=== PATIENT | male | born 1985 | race Caucasian/White ===

== ENCOUNTER 2019-04-18 21:54 | Emergency (ER) | payer BC ==
[2019-04-18] MEDS ORDERED: FLU Vacc QS2019-20(6MOS+)/PF 60 MCG/0.5 ML SYRINGE IM ONE (22:45)
--- NOTE | 2019-04-18 22:45 | EDM.PDOCBH ---
ED HPI GENERAL MEDICAL PROBLEM - General Chief Complaint: Behavioral/Psych Stated Complaint: JESSICA NICHOLAS Time Seen by Provider: 04/18/19 22:14 Source of Information: Reports: Patient, Family (Mother) History Limitations: Reports: No Limitations - History of Present Illness INITIAL COMMENTS - FREE TEXT/NARRATIVE: Mr. Tse is a very pleasant 33-year-old man who is accompanied to the ED by his mother, who lives across the street from the patient. The patient has a history of depression and ADHD since he was in high school, however, he has not been on any antidepressant for at least 4 years, and the patient is unable to say how long it has been since his ADHD was treated. He has no other medical or psychiatric diagnoses. He states that he started having auditory hallucinations that told him "salvation is all that matters" and that he was going to be 1 of 12 apostles, about one week ago. He states that the voice was teaching him "new prayers". He states that he also has "visions" in his head. The patient, however , has come to believe that he is inhabited by a demon, and that all of the things that he has been told are a lie. Nevertheless, he feels that the demon is inhabiting more and more of his body, therefore he has been feeling compelled to harm himself by grabbing a knife and cutting himself, today. He states that prior to 1 week ago, he never heard voices or saw visions in his head. He has not done anything to harm himself. 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 He denies using any recreational drugs, and he states that he drinks alcohol only rarely. The patient denies recent illness, such as fever, chills, cough, dyspnea, chest pain, palpitations, nausea, vomiting, constipation, diarrhea, abdominal pain, urinary symptoms, recent weight gain or weight loss, recent bloody bowel movements or black bowel movements, recent joint aches, headaches, or rashes. The patient does not have a PCP. He does not have a Psychiatrist. He has not received an influenza vaccine this season, but is willing to receive one here today. Throat Pain Score (Numeric/FACES): 2 - Related Data Allergies Allergy/AdvReac Type Severity Reaction Status Date / Time No Known Allergies Allergy Verified 04/18/19 22:11 Home Meds: Home Meds . [No Known Home Meds] 04/18/19 [History] Past Medical History Psychiatric History: Reports: ADHD (untreated), Depression (untreated) - Past Surgical History HEENT Surgical History: Reports: Oral Surgery (wisdom teeth extraction) Musculoskeletal Surgical History: Reports: Other (See Below) (Left Brostrm procedure (repair of anterior talofibular ligament) x 2) Social & Family History - Tobacco Use Smoking Status *Q: Current Every Day Smoker Years of Tobacco use: 15 Packs/Tins Daily: 1 Packs/Tins Daily Comment: Down from 2 ppd - Caffeine Use Caffeine Use: Reports: Coffee, Energy Drinks - Alcohol Use Alcohol Use History: Yes Alcohol Use Frequency: Rarely - Recreational Drug Use Recreational Drug Use: Yes Drug Use in Last 12 Months: No Recreational Drug Type: Reports: Marijuana/Hashish (last smoked 2008) - Living Situation & Occupation Living situation: Reports: Single, Alone 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 ED EXAM, BEHAVIORAL HEALTH - Physical Exam Exam: See Below Exam Limited By: No Limitations General Appearance: Alert, WD/WN, No Apparent Distress Eye Exam: Bilateral Eye: EOMI, Normal Inspection Ears: Normal External Exam, Hearing Grossly Normal Nose: Normal Inspection Throat/Mouth: Normal Inspection, Normal Lips, Normal Voice, No Airway Compromise Head: Atraumatic, Normocephalic Neck: Normal Inspection, Full Range of Motion Respiratory/Chest: No Respiratory Distress, Lungs Clear, Normal Breath Sounds, No Accessory Muscle Use Cardiovascular: Normal Peripheral Pulses, No Edema, No Gallop, No JVD, No Murmur , No Rub, Tachycardia (regular) GI/Abdominal: Normal Bowel Sounds, Soft, Non-Tender, No Organomegaly, No Distention, No Abnormal Bruit, No Mass (Male) Exam: Deferred Rectal (Males) Exam: Deferred Back Exam: Normal Inspection, Full Range of Motion, NT Extremities: Normal Inspection, Normal Range of Motion, No Pedal Edema, Normal Capillary Refill Neurological: Alert, No Motor/Sensory Deficits, Oriented x 3 Psychiatric: Restless (mild), Evangelical Delusions, Auditory Hallucinations Skin Exam: Warm, Dry, Intact, Normal color, No rash EKG INTERPRETATION EKG Date: 04/18/19 Time: 22:38 Rhythm: Other (Sinus tachycardia) Rate (Beats/Min): 103 [place]: Normal P-Wave: Enlarged (LAE) QRS: Normal ST-T: Normal QT: Normal Comparison: NA - No Prior EKG COURSE, BEHAVIORAL HEALTH COMP - Course Vital Signs: Last Vital Signs Temp 36.9 C 04/18/19 22:04 Pulse 112 H 04/18/19 22:04 Resp 20 04/18/19 22:04 BP 176/107 H 04/18/19 22:04 Pulse Ox 98 04/18/19 22:04 Orders, Labs, Meds: Active Orders 24 hr Category Date Time Status EKG Documentation Completion [RC] STAT Care 04/18/19 22:33 Active Influenza Vaccine Charge [RC] .DISCHARGE Care 04/18/19 22:35 Active Laboratory Tests 04/18/19 04/18/19 04/18/19 Range/Units 22:46 22:46 22:46 WBC 11.05 H (4.23-9.07) K/mm3 RBC 5.73 (4.63-6.08) M/mm3 Hgb 16.2 (13.7-17.5) gm/dl Hct 46.2 (40.1-51.0) % MCV 80.6 (79.0-92.2) fl MCH 28.3 (25.7-32.2) pg MCHC 35.1 (32.2-35.5) g/dl RDW Std Deviation 36.7 (35.1-43.9) fL Plt Count 354 H (163-337) K/mm3 MPV 8.2 L (9.4-12.3) fl Neut % (Auto) 65.1 (34.0-67.9) % Lymph % (Auto) 25.8 (21.8-53.1) % [place] % (Auto) 8.1 (5.3-12.2) % Eos % (Auto) 0.6 L (0.8-7.0) Baso % (Auto) 0.2 (0.1-1.2) % Neut # (Auto) 7.20 H (1.78-5.38) K/mm3 Lymph # (Auto) 2.85 (1.32-3.57) K/mm3 [place] # (Auto) 0.89 H (0.30-0.82) K/mm3 Eos # (Auto) 0.07 (0.04-0.54) K/mm3 Baso # (Auto) 0.02 (0.01-0.08) K/mm3 Manual Slide Review Normal smear Sodium 140 (136-145) mEq/L Potassium 3.1 L (3.5-5.1) mEq/L Chloride 103 (98-107) mEq/L Carbon Dioxide 23 (21-32) mEq/L Anion Gap 17.1 H (5-15) BUN 8 (7-18) mg/dL Creatinine 1.0 (0.7-1.3) mg/dL Est Cr Clr Drug Dosing 103.55 mL/min Estimated GFR (MDRD) > 60 (>60) mL/min BUN/Creatinine Ratio 8.0 L (14-18) Glucose 95 (74-106) mg/dL Calcium 9.1 (8.5-10.1) mg/dL Total Bilirubin 1.9 H (0.2-1.0) mg/dL AST 26 (15-37) U/L ALT 77 H (16-63) U/L Alkaline Phosphatase 102 (46-116) U/L Total Protein 7.5 (6.4-8.2) g/dl Albumin 3.9 (3.4-5.0) g/dl Globulin 3.6 gm/dL Albumin/Globulin Ratio 1.1 (1-2) TSH 3rd Generation 1.544 (0.358-3.74) uIU/mL Salicylates < 0.2 L (2.8-20) mg/dL Urine Opiates Screen (OHDNOY=674) Ur Buprenorphine Scrn (CUTOFF=10) Ur Oxycodone Screen (RTR0NP=700) Urine Methadone Screen (RPD2FL=229) Ur Propoxyphene Screen (BIZXEM=339) Acetaminophen 0 L (10-30) ug/mL Ur Barbiturates Screen (WOOVQZ=283) Ur Tricyclics Screen (MJVBFS=291) Ur Phencyclidine Scrn (CUTOFF=25) Ur Amphetamine Screen (CLOEWN=685) U Methamphetamines Scrn (VMALRO=018) U Benzodiazepines Scrn (QETJTZ=963) U Cocaine Metab Screen (XTJUXA=422) U Marijuana (THC) Screen (CUTOFF=50) Ethyl Alcohol 0.00 (0.00) gm% 04/18/19 Range/Units 23:25 WBC (4.23-9.07) K/mm3 RBC (4.63-6.08) M/mm3 Hgb (13.7-17.5) gm/dl Hct (40.1-51.0) % MCV (79.0-92.2) fl MCH (25.7-32.2) pg MCHC (32.2-35.5) g/dl RDW Std Deviation (35.1-43.9) fL Plt Count (163-337) K/mm3 MPV (9.4-12.3) fl Neut % (Auto) (34.0-67.9) % Lymph % (Auto) (21.8-53.1) % [place] % (Auto) (5.3-12.2) % Eos % (Auto) (0.8-7.0) Baso % (Auto) (0.1-1.2) % Neut # (Auto) (1.78-5.38) K/mm3 Lymph # (Auto) (1.32-3.57) K/mm3 [place] # (Auto) (0.30-0.82) K/mm3 Eos # (Auto) (0.04-0.54) K/mm3 Baso # (Auto) (0.01-0.08) K/mm3 Manual Slide Review Sodium (136-145) mEq/L Potassium (3.5-5.1) mEq/L Chloride (98-107) mEq/L Carbon Dioxide (21-32) mEq/L Anion Gap (5-15) BUN (7-18) mg/dL Creatinine (0.7-1.3) mg/dL Est Cr Clr Drug Dosing mL/min Estimated GFR (MDRD) (>60) mL/min BUN/Creatinine Ratio (14-18) Glucose (74-106) mg/dL Calcium (8.5-10.1) mg/dL Total Bilirubin (0.2-1.0) mg/dL AST (15-37) U/L ALT (16-63) U/L Alkaline Phosphatase (46-116) U/L Total Protein (6.4-8.2) g/dl Albumin (3.4-5.0) g/dl Globulin gm/dL Albumin/Globulin Ratio (1-2) TSH 3rd Generation (0.358-3.74) uIU/mL Salicylates (2.8-20) mg/dL Urine Opiates Screen Negative (AYXYIM=996) Ur Buprenorphine Scrn Negative (CUTOFF=10) Ur Oxycodone Screen Negative (VTC4AO=965) Urine Methadone Screen Negative (DLW3IT=433) Ur Propoxyphene Screen Negative (ZDXBJI=514) Acetaminophen (10-30) ug/mL Ur Barbiturates Screen Negative (BEWKPZ=066) Ur Tricyclics Screen Negative (FDIIYA=490) Ur Phencyclidine Scrn Negative (CUTOFF=25) Ur Amphetamine Screen Negative (ZRRTAR=644) U Methamphetamines Scrn Negative (XYJWXF=498) U Benzodiazepines Scrn Negative (LRYGDD=661) U Cocaine Metab Screen Negative (QTNCWB=244) U Marijuana (THC) Screen Negative (CUTOFF=50) Ethyl Alcohol (0.00) gm% Medications Discontinued Medications Generic Name Dose Route Start Last Admin Trade Name Freq PRN Reason Stop Dose Admin Influenza Virus Vaccine 60 mcg 04/18/19 22:45 04/18/19 23:20 Fluzone Quad Syringe IM 04/18/19 22:46 60 mcg .ONCE ONE Administration Potassium Chloride 40 meq 04/19/19 00:19 Klor-Con M20 PO 04/19/19 00:20 ONETIME ONE Medical Clearance: 04/18/19 22:34 The patient is exhibiting psychotic features, including delusions and auditory hallucinations. He has a history of depression and ADHD, both currently untreated. I have ordered a standard psychiatric medical evaluation. 04/19/19 00:18 The patient's CBC is remarkable for a WBC count slightly elevated at 11.05, but with a normal smear. His platelets are mildly elevated at 354,000. The remainder of his CBC is unremarkable. His CMP is remarkable for a potassium mildly depressed at 3.1, an anion gap slightly elevated at 17.1 with a bicarbonate normal at 23, and a total bilirubin elevated at 1.9, with the remainder of the CMP being unremarkable. His TSH is within normal limits at 1.544. His acetaminophen level is 0. His salicylate level is <0.2. His EtOH level is 0. His urine drug screen is completely negative. The patient will be given 40 mEq of oral potassium. We will begin looking for a psychiatric bed. 04/19/19 00:34 Case discussed with Diane at [facility] at 00:26. She attempted to reach the Psychiatrist on-call, Dr. Antonio Godinez, however, was unable. She stated that [facility] does have beds, however. She will call us back once she is able to reach Dr. Godinez. 04/19/19 00:40 Called back by Diane and Dr. Godinez at 00:36. He accepted the patient for direct admission, however, he did not want the patient's mother to drive the patient, rather, he wanted the patient, either ambulance or [facility] head department. I will therefore have to place a 24-hour hold and have the patient transported by the [facility]'s department in the morning. 04/19/19 00:45 Test results and the plan of care discussed with the patient's mother. The patient is sleeping soundly. The patient's mother will go home. Departure - Departure Time of Disposition: 00:41 Disposition: DC/Tfer to Psych Hosp/Unit 65 Condition: Good Clinical Impression: Acute psychosis, Hypokalemia - Discharge Information *PRESCRIPTION DRUG MONITORING PROGRAM REVIEWED*: Not Applicable *COPY OF PRESCRIPTION DRUG MONITORING REPORT IN PATIENT RAEANN: Not Applicable Referrals: PCP,None [Primary Care Provider] - Forms: ED Department Discharge Sepsis Event Note - Evaluation Sepsis Screening Result: No Definite Risk - Focused Exam Vital Signs: Vital Signs Temp Pulse Resp BP Pulse Ox 04/18/19 22:04 36.9 C 112 H 20 176/107 H 98 Date Exam was Performed: 04/19/19 Time Exam was Performed: 00:47 - My Orders Last 24 Hours: My Active Orders 04/18/19 22:33 EKG Documentation Completion [RC] STAT 04/18/19 22:35 Influenza Vaccine Charge [RC] .DISCHARGE - Assessment/Plan Last 24 Hours: My Active Orders 04/18/19 22:33 EKG Documentation Completion [RC] STAT 04/18/19 22:35 Influenza Vaccine Charge [RC] .DISCHARGE
[2019-04-18 23:51] LABS: ACETAMINOPHEN 0 ug/mL (10-30)
[2019-04-19] MEDS ORDERED: Potassium Chloride 20 MEQ Tab.ER PO ONE (00:19)
== END 2019-04-19 10:00 ==
LOC: JD.ED 21:54
DX: F23 Brief psychotic disorder (principal); E87.6 Hypokalemia; F17.210 Nicotine dependence, cigarettes, uncomplicated; Z23 Encounter for immunization
CPT/HCPCS: 36415; 80053; 80306; 80320; 80329; 84443; 85025; 90471; 90686; 93005; 99285; A9270; 93010; G0008; G0480

== ENCOUNTER 2020-09-19 21:46 | Emergency (ER) | payer BC ==
[2020-09-19] MEDS ORDERED: Haloperidol Lactate 5 MG/ML SDV IM ONE (22:58)
--- NOTE | 2020-09-19 23:04 | EDM.PDOCBH ---
<Emily Lundberg V - Last Filed: 09/19/20 22:59> ED HPI GENERAL MEDICAL PROBLEM - General Chief Complaint: Behavioral/Psych Stated Complaint: BEHAVIORAL ISSUES Time Seen by Provider: 09/19/20 22:45 Source of Information: Reports: Patient, RN Notes Reviewed History Limitations: Reports: No Limitations - History of Present Illness INITIAL COMMENTS - FREE TEXT/NARRATIVE: Patient is a 34-year-old male who presents to the ER for possible demon possessing him. Patient states that he has been having issues with this for roughly 1 week. He states that there is a demon trying to take over his body, he does not know the name of the demon, but the demon is making him have random verbal outbursts and behaviors. States that the demon shows him visual images, of people slicing their throats, and he is afraid that the demon is going to make him kill himself. He himself has no suicidal ideation, he has no homicidal ideation. He is not seeing things that are not there, other than the visions that he says that the demon is showing him. Notes that he is talking or has talked to his forest economics professor, and prays nightly, but this does not seem to be helping. He is not taking any medications. Primary care provider is Mario Decker. States that this has happened 1 time in the past roughly 2 years ago, and he did get admitted to [facility] and everything got better for some time. Upon interrogation with the patient, he does have a few verbal outbursts, and his voice does audibly change, the voice states things like "you are stupid ", "I told you so ". He was unsure where to go or what to do, so he comes to the ER for evaluation. He does not think that this could be psychosis or schizophrenic break. Patient denies any other sick-like symptoms, fever/chills, cough/shortness of breath, nausea/vomiting/diarrhea. He does state however that he has having some epigastric discomfort, and he states that the demon wants to take him over, and that it wants to hold onto his liver. - Related Data Allergies Allergy/AdvReac Type Severity Reaction Status Date / Time bee venom protein (honey bee) Allergy Other Verified 09/19/20 22:04 Home Meds: Home Meds haloperidoL [Haldol] 2 mg PO Q12HR #10 tab 09/20/20 [Rx] Past Medical History - Past Health History Medical/Surgical History: Denies Medical/Surgical History Musculoskeletal History: Reports: Other (See Below) Other Musculoskeletal History: left ankle/tendon surgery Psychiatric History: Reports: ADHD, Depression, Psych Hospitalization(s) - Past Surgical History HEENT Surgical History: Reports: Oral Surgery Musculoskeletal Surgical History: Reports: Other (See Below) Social & Family History - Tobacco Use Tobacco Use Status *Q: Current Every Day Tobacco User Years of Tobacco use: 1 Packs/Tins Daily: 1 - Caffeine Use Caffeine Use: Reports: None - Alcohol Use Days Per Week of Alcohol Use: 3 Number of Drinks Per Day: 2 Total Drinks Per Week: 6 - Recreational Drug Use Recreational Drug Use: No - Living Situation & Occupation Living situation: Reports: Single, Alone 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 ED EXAM, BEHAVIORAL HEALTH - Physical Exam Exam: See Below Exam Limited By: No Limitations General Appearance: Alert, WD/WN, No Apparent Distress Eye Exam: Bilateral Eye: EOMI, Normal Inspection, PERRL Throat/Mouth: Normal Inspection, Normal Lips, Normal Teeth, Normal Gums, Normal Oropharynx, Normal Voice, No Airway Compromise Respiratory/Chest: No Respiratory Distress, Lungs Clear, Normal Breath Sounds, No Accessory Muscle Use, Chest Non-Tender Cardiovascular: Normal Peripheral Pulses, Regular Rate, Rhythm, No Edema GI/Abdominal: Normal Bowel Sounds, Soft, Non-Tender, No Distention, No Mass Extremities: Normal Inspection, Normal Capillary Refill Neurological: Alert, Normal Mood/Affect, Normal Cognition, No Motor/Sensory Deficits Psychiatric: Alert, Flat Affect, Congregational Delusions (states that there is a demon trying to take him over; fears it wants him to kill himself), Auditory Hallucinations (demon voice telling him he is dumb, etc), Visual Hallucinations (states that the demon is showing him visions of explicit images, i.e. people slitting their throats.). No: Suicidal Plan, Suicidal Thoughts Skin Exam: Warm, Dry, Intact, Normal color, No rash COURSE, BEHAVIORAL HEALTH COMP - Course Discharge vs Psych Eval/Treatment:: 09/19/20 23:07 Patient presents to the ER for the evaluation of edema in trying to take over his body. He is exhibiting odd behavior, and there is audible voice change when he states that the demon is talking. I have ordered 10 mg Haldol, and laboratory evaluation for initial management. Patient is agreeable to the Haldol at this time. It is the end of my shift, and care will be transferred to Dr. James for further management. However it is my clinical opinion that the patient would likely benefit from psych hospitalization. Departure - Departure Disposition: Home, Self-Care 01 Clinical Impression: Hallucinations - Discharge Information Prescriptions: haloperidoL [Haldol] 2 mg PO Q12HR #10 tab Referrals: Manuelito Decker ELECTROTYPER APPRENTICE [Primary Care Provider] - Forms: ED Department Discharge Additional Instructions: Haldol 2 mg twice daily for now. Telemed or telephone conference with Dr Huffman September 22, 2 days from now as planned and scheduled. I expect that this would be telemed conference which would involve coming to our [facility] clinic 20 to 30 minutes before scheduled appointment. Call the number you have been given to make that appointment to confirm details of that appointment. Return to our ED at any time if symptoms worsening in any way. Sepsis Event Note (ED) - Evaluation Sepsis Screening Result: No Definite Risk <Gordo Chu - Last Filed: 09/20/20 05:18> COURSE, BEHAVIORAL HEALTH COMP - Course Vital Signs: Last Vital Signs Temp 98.9 F 09/19/20 22:02 Pulse 86 09/19/20 22:02 Resp 18 09/19/20 22:02 BP 140/71 09/19/20 22:02 Pulse Ox 98 09/19/20 22:02 Orders, Labs, Meds: Laboratory Tests 09/19/20 09/19/20 09/19/20 Range/Units 22:40 22:40 22:40 WBC 11.48 H (4.23-9.07) K/mm3 RBC 5.73 (4.63-6.08) M/mm3 Hgb 16.0 (13.7-17.5) gm/dl Hct 47.2 (40.1-51.0) % MCV 82.4 (79.0-92.2) fl MCH 27.9 (25.7-32.2) pg MCHC 33.9 (32.2-35.5) g/dl RDW Std Deviation 39.8 (35.1-43.9) fL Plt Count 392 H (163-337) K/mm3 MPV 8.4 L (9.4-12.3) fl Neut % (Auto) 70.2 H (34.0-67.9) % Lymph % (Auto) 20.0 L (21.8-53.1) % [place] % (Auto) 8.8 (5.3-12.2) % Eos % (Auto) 0.5 L (0.8-7.0) Baso % (Auto) 0.2 (0.1-1.2) % Neut # (Auto) 8.05 H (1.78-5.38) K/mm3 Lymph # (Auto) 2.30 (1.32-3.57) K/mm3 [place] # (Auto) 1.01 H (0.30-0.82) K/mm3 Eos # (Auto) 0.06 (0.04-0.54) K/mm3 Baso # (Auto) 0.02 (0.01-0.08) K/mm3 Manual Slide Review Abnormal smear Sodium 138 (136-145) mEq/L Potassium 3.5 (3.5-5.1) mEq/L Chloride 101 (98-107) mEq/L Carbon Dioxide 26 (21-32) mEq/L Anion Gap 14.5 (5-15) BUN 10 (7-18) mg/dL Creatinine 0.9 (0.7-1.3) mg/dL Est Cr Clr Drug Dosing 114.00 mL/min Estimated GFR (MDRD) > 60 (>60) mL/min BUN/Creatinine Ratio 11.1 L (14-18) Glucose 114 H (70-99) mg/dL Calcium 8.8 (8.5-10.1) mg/dL Total Bilirubin 1.1 H (0.2-1.0) mg/dL AST 36 (15-37) U/L ALT 113 H (16-63) U/L Alkaline Phosphatase 104 (46-116) U/L Total Protein 7.4 (6.4-8.2) g/dl Albumin 3.9 (3.4-5.0) g/dl Globulin 3.5 gm/dL Albumin/Globulin Ratio 1.1 (1-2) TSH 3rd Generation 1.336 (0.358-3.74) uIU/mL Salicylates 0.6 L (2.8-20) mg/dL Urine Opiates Screen (CRSKLH=201) Ur Buprenorphine Scrn (CUTOFF=10) Ur Oxycodone Screen (RHJ4KB=866) Urine Methadone Screen (VMW9UF=563) Ur Propoxyphene Screen (QTGTQH=505) Acetaminophen 0 L (10-30) ug/mL Ur Barbiturates Screen (BKPBJK=787) Ur Tricyclics Screen (QBSRQK=779) Ur Phencyclidine Scrn (CUTOFF=25) Ur Amphetamine Screen (EJJVMY=850) U Methamphetamines Scrn (VYLQUI=015) U Benzodiazepines Scrn (JKQMMZ=668) U Cocaine Metab Screen (ZOKVHB=721) U Marijuana (THC) Screen (CUTOFF=50) Ethyl Alcohol 0.00 (0.00) gm% 09/20/20 Range/Units 00:17 WBC (4.23-9.07) K/mm3 RBC (4.63-6.08) M/mm3 Hgb (13.7-17.5) gm/dl Hct (40.1-51.0) % MCV (79.0-92.2) fl MCH (25.7-32.2) pg MCHC (32.2-35.5) g/dl RDW Std Deviation (35.1-43.9) fL Plt Count (163-337) K/mm3 MPV (9.4-12.3) fl Neut % (Auto) (34.0-67.9) % Lymph % (Auto) (21.8-53.1) % [place] % (Auto) (5.3-12.2) % Eos % (Auto) (0.8-7.0) Baso % (Auto) (0.1-1.2) % Neut # (Auto) (1.78-5.38) K/mm3 Lymph # (Auto) (1.32-3.57) K/mm3 [place] # (Auto) (0.30-0.82) K/mm3 Eos # (Auto) (0.04-0.54) K/mm3 Baso # (Auto) (0.01-0.08) K/mm3 Manual Slide Review Sodium (136-145) mEq/L Potassium (3.5-5.1) mEq/L Chloride (98-107) mEq/L Carbon Dioxide (21-32) mEq/L Anion Gap (5-15) BUN (7-18) mg/dL Creatinine (0.7-1.3) mg/dL Est Cr Clr Drug Dosing mL/min Estimated GFR (MDRD) (>60) mL/min BUN/Creatinine Ratio (14-18) Glucose (70-99) mg/dL Calcium (8.5-10.1) mg/dL Total Bilirubin (0.2-1.0) mg/dL AST (15-37) U/L ALT (16-63) U/L Alkaline Phosphatase (46-116) U/L Total Protein (6.4-8.2) g/dl Albumin (3.4-5.0) g/dl Globulin gm/dL Albumin/Globulin Ratio (1-2) TSH 3rd Generation (0.358-3.74) uIU/mL Salicylates (2.8-20) mg/dL Urine Opiates Screen Negative (ZMEQLD=594) Ur Buprenorphine Scrn Negative (CUTOFF=10) Ur Oxycodone Screen Negative (CTQ2NQ=756) Urine Methadone Screen Negative (OUT4LD=957) Ur Propoxyphene Screen Negative (GIJRQN=630) Acetaminophen (10-30) ug/mL Ur Barbiturates Screen Negative (LJXWQP=144) Ur Tricyclics Screen Negative (PZIYCI=305) Ur Phencyclidine Scrn Negative (CUTOFF=25) Ur Amphetamine Screen Negative (ZQISWL=412) U Methamphetamines Scrn Negative (UQKRLF=920) U Benzodiazepines Scrn Negative (ZYBMUG=492) U Cocaine Metab Screen Negative (EVDTGB=031) U Marijuana (THC) Screen Negative (CUTOFF=50) Ethyl Alcohol (0.00) gm% Medications Discontinued Medications Generic Name Dose Route Start Last Admin Trade Name Freq PRN Reason Stop Dose Admin Haloperidol Lactate 10 mg 09/19/20 22:58 09/20/20 00:19 Haloperidol Lactate 5 Mg/Ml Sdv IM 09/19/20 22:59 10 mg ONETIME ONE Administration Re-Assessment/Re-Exam: 01:20. Have assumed care from Emily Lundberg after end of her shift. I agree with her history and exam as documented. Appropriate labs ordered. Drug screen is neg. Other labs all relatively normal. Pt is sleeping at this time. At time of patient's presentation I was tied up with a critical patient. Did not have opportunity to evaluate or take a history from patient at time of his arrival to ED. He has been sleeping since given haldol 10 mg IM some time ago. 3:00 still sleeping. 4:20 still sleeping. It seems reasonable to let him sleep. See what state he is in when he awakens at a more reasonable time this morning. 05:10. Patient is awake, wants to go home. I have visited with him. He is not currently hallucinating, auditory or visual. He is answering questions appropriately, able to give some details of his past hx. States he was on haldol for a period of time after his psych. admission about a couple of yrs ago. Has been off of that for quite awhile. He states hallucinations only became more intense and bothersome last evening prompting his visit to the ED. He does have a telemed visit schedule for Dr Huffman for this coming , 2 days from now. He denies feeling suicidal in any way. He [place] with his mother [place] [facility]. He want to and feels comfortable to go home at this time. He is interested to start back on haldol. Being he was given that last evening will continue with that for now. Have sent a script for 2 mg bid to [place] [facility]. Departure - Departure Time of Disposition: 05:30 Condition: Fair Sepsis Event Note (ED) - Focused Exam Vital Signs: Vital Signs Temp Pulse Resp BP Pulse Ox 09/19/20 22:02 98.9 F 86 18 140/71 98
[2020-09-19 23:17] LABS: ACETAMINOPHEN 0 ug/mL (10-30)
== END 2020-09-20 05:20 | disposition home or self-care (01) ==
LOC: JD.ED 21:46
DX: R44.0 Auditory hallucinations (principal); Z72.0 Tobacco use
CPT/HCPCS: 36415; 80053; 80143; 80179; 80306; 80307; 84443; 85025; 96372; 99284; J1630

== ENCOUNTER 2020-09-20 15:07 | Emergency (ER) | payer BC ==
[2020-09-20] MEDS ORDERED: Haloperidol Lactate 5 MG/ML SDV IM ONE (15:26)
--- NOTE | 2020-09-20 16:20 | EDM.PDOCBH ---
ED HPI GENERAL MEDICAL PROBLEM - General Chief Complaint: Behavioral/Psych Stated Complaint: BEHAVIORAL ISSUES Time Seen by Provider: 09/20/20 15:22 Source of Information: Reports: Patient History Limitations: Reports: Altered Mental Status - History of Present Illness INITIAL COMMENTS - FREE TEXT/NARRATIVE: 34-year-old male presents the emergency department with complaints of being possessed by a demon. The patient was seen in the emergency department yesterday with similar symptoms. He has not been diagnosed with bipolar or schizophrenia in the past and does not take any medications. He states his primary care provider is Mario Decker. Patient states that approximately 1 week ago his body was taken over by a demon and he is possessed. The demon is making him have random outbursts and behavior. At the time of my interview the patient will be conversing with me normally and then his voice will change and he will grunt and growl and start giggling to himself and having a conversation on the side. The patient denies hearing voices he states he is being taken over by a demon. He denies any thoughts of harm to others however he is unsure of whether or not the demon is wanting to harm him. Apparently this happened 1 time approximately 2 years ago and he was admitted to [facility] and he states things got better. He is requesting to be restrained as he states that the demon is eventually going to take him over. He denies any other symptoms such as fever, chills, nausea, vomiting or diarrhea. He denies cough or shortness of breath. Patient is again asking to be restrained as he is unable to tell me what will happen once the demon takes over. Patient denies any history of drug abuse. He states he drinks 1 beer per day every once in a wh ile. States his last drink was a few days ago. And he denies any smoking. I have ordered labs to include a CBC, CMP, magnesium, TSH, salicylate, acetaminophen, urine drug screen, UA with micro and culture if indicated, blood alcohol level. Treatments TELECOMMUNICATIONS ANALYST: Reports: Other (see below) Other Treatments TELECOMMUNICATIONS ANALYST: haldol - Related Data Allergies Allergy/AdvReac Type Severity Reaction Status Date / Time bee venom protein (honey bee) Allergy Other Verified 09/20/20 15:22 Home Meds: Home Meds Lurasidone [Latuda] 40 mg PO DAILY 09/20/20 [History] buPROPion HCL [Wellbutrin Sr] 150 mg PO BID 09/20/20 [History] haloperidoL [Haldol] 2 mg PO Q12HR #10 tab 09/20/20 [Rx] risperiDONE [Risperidone] 3 mg PO BEDTIME 09/20/20 [History] Past Medical History - Past Health History Medical/Surgical History: Denies Medical/Surgical History Musculoskeletal History: Reports: Other (See Below) Other Musculoskeletal History: left ankle/tendon surgery Psychiatric History: Reports: ADHD, Depression, Psych Hospitalization(s) - Past Surgical History HEENT Surgical History: Reports: Oral Surgery Musculoskeletal Surgical History: Reports: Other (See Below) Social & Family History - Caffeine Use Caffeine Use: Reports: None - Living Situation & Occupation Living situation: Reports: Single, Alone 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 ED EXAM, BEHAVIORAL HEALTH - Physical Exam Exam: See Below Exam Limited By: Altered Mental Status General Appearance: Alert, Mild Distress (States he is possessed by a demon and it is making him move his legs in the bed) Ears: Normal External Exam, Hearing Grossly Normal Nose: Normal Inspection Throat/Mouth: Normal Inspection, Normal Lips, Normal Voice, No Airway Compromise Head: Atraumatic Neck: Normal Inspection, Supple Respiratory/Chest: No Respiratory Distress, No Accessory Muscle Use Cardiovascular: Normal Peripheral Pulses, Regular Rate, Rhythm GI/Abdominal: No Distention (Male) Exam: Deferred Rectal (Males) Exam: Deferred Back Exam: Normal Inspection Extremities: Normal Inspection Neurological: Alert, Oriented x 3. No: Normal Mood/Affect (Patient has flight of ideas and tangential thoughts) Psychiatric: Alert, Oriented, Restless, Flight of Ideas, Tangential Thoughts, Auditory Hallucinations (States he is possessed by a demon). No: Suicidal Plan, Suicidal Thoughts, Visual Hallucinations, Paranoid Thoughts, Threatening Behavior Skin Exam: Warm, Dry, Intact, Normal color, No rash #1 Interpretation EKG Date: 09/20/20 Time: 15:53 Rhythm: NSR Rate (Beats/Min): 80 [place]: Normal P-Wave: Present QRS: Normal ST-T: Normal QT: Normal EKG Interpretation Comments: Per Dr. Romero interpretation: Sinus rhythm at 80 bpm; QTC mildly prolonged; otherwise normal EKG COURSE, BEHAVIORAL HEALTH COMP - Course Vital Signs: Last Vital Signs Temp 96.8 F L 09/20/20 15:18 Pulse 87 09/20/20 15:18 Resp 18 09/20/20 15:18 BP 155/95 H 09/20/20 15:18 Pulse Ox 96 09/20/20 15:18 Orders, Labs, Meds: Active Orders 24 hr Category Date Time Status EKG Documentation Completion [RC] STAT Care 09/20/20 15:35 Active DRUG SCREEN, URINE (NPL) Stat Lab 09/20/20 16:45 Ordered UA RFX [place] AND CULT IF INDIC [URIN] Stat Lab 09/20/20 15:35 Ordered Laboratory Tests 09/20/20 09/20/20 09/20/20 Range/Units 15:49 15:49 15:49 WBC 13.49 H (4.23-9.07) K/mm3 RBC 5.84 (4.63-6.08) M/mm3 Hgb 16.1 (13.7-17.5) gm/dl Hct 48.0 (40.1-51.0) % MCV 82.2 (79.0-92.2) fl MCH 27.6 (25.7-32.2) pg MCHC 33.5 (32.2-35.5) g/dl RDW Std Deviation 40.1 (35.1-43.9) fL Plt Count 384 H (163-337) K/mm3 MPV 8.6 L (9.4-12.3) fl Neut % (Auto) 82.2 H (34.0-67.9) % Lymph % (Auto) 10.6 L (21.8-53.1) % [place] % (Auto) 6.8 (5.3-12.2) % Eos % (Auto) 0.1 L (0.8-7.0) Baso % (Auto) 0.1 (0.1-1.2) % Neut # (Auto) 11.09 H (1.78-5.38) K/mm3 Lymph # (Auto) 1.43 (1.32-3.57) K/mm3 [place] # (Auto) 0.92 H (0.30-0.82) K/mm3 Eos # (Auto) 0.01 L (0.04-0.54) K/mm3 Baso # (Auto) 0.01 (0.01-0.08) K/mm3 Manual Slide Review Abnormal smear Sodium 139 (136-145) mEq/L Potassium 4.1 (3.5-5.1) mEq/L Chloride 102 (98-107) mEq/L Carbon Dioxide 26 (21-32) mEq/L Anion Gap 15.1 H (5-15) BUN 8 (7-18) mg/dL Creatinine 0.9 (0.7-1.3) mg/dL Est Cr Clr Drug Dosing 114.00 mL/min Estimated GFR (MDRD) > 60 (>60) mL/min BUN/Creatinine Ratio 8.9 L (14-18) Glucose 110 H (70-99) mg/dL Calcium 9.0 (8.5-10.1) mg/dL Magnesium 2.2 (1.8-2.4) mg/dL Total Bilirubin 1.4 H (0.2-1.0) mg/dL AST 36 (15-37) U/L ALT 124 H (16-63) U/L Alkaline Phosphatase 113 (46-116) U/L Total Protein 7.7 (6.4-8.2) g/dl Albumin 3.9 (3.4-5.0) g/dl Globulin 3.8 gm/dL Albumin/Globulin Ratio 1.0 (1-2) TSH 3rd Generation 1.293 (0.358-3.74) uIU/mL Salicylates < 0.2 L (2.8-20) mg/dL Acetaminophen 0 L (10-30) ug/mL Ethyl Alcohol 0.00 (0.00) gm% SARS-CoV-2 RNA (APRIL) (NEGATIVE) 09/20/20 Range/Units 16:45 WBC (4.23-9.07) K/mm3 RBC (4.63-6.08) M/mm3 Hgb (13.7-17.5) gm/dl Hct (40.1-51.0) % MCV (79.0-92.2) fl MCH (25.7-32.2) pg MCHC (32.2-35.5) g/dl RDW Std Deviation (35.1-43.9) fL Plt Count (163-337) K/mm3 MPV (9.4-12.3) fl Neut % (Auto) (34.0-67.9) % Lymph % (Auto) (21.8-53.1) % [place] % (Auto) (5.3-12.2) % Eos % (Auto) (0.8-7.0) Baso % (Auto) (0.1-1.2) % Neut # (Auto) (1.78-5.38) K/mm3 Lymph # (Auto) (1.32-3.57) K/mm3 [place] # (Auto) (0.30-0.82) K/mm3 Eos # (Auto) (0.04-0.54) K/mm3 Baso # (Auto) (0.01-0.08) K/mm3 Manual Slide Review Sodium (136-145) mEq/L Potassium (3.5-5.1) mEq/L Chloride (98-107) mEq/L Carbon Dioxide (21-32) mEq/L Anion Gap (5-15) BUN (7-18) mg/dL Creatinine (0.7-1.3) mg/dL Est Cr Clr Drug Dosing mL/min Estimated GFR (MDRD) (>60) mL/min BUN/Creatinine Ratio (14-18) Glucose (70-99) mg/dL Calcium (8.5-10.1) mg/dL Magnesium (1.8-2.4) mg/dL Total Bilirubin (0.2-1.0) mg/dL AST (15-37) U/L ALT (16-63) U/L Alkaline Phosphatase (46-116) U/L Total Protein (6.4-8.2) g/dl Albumin (3.4-5.0) g/dl Globulin gm/dL Albumin/Globulin Ratio (1-2) TSH 3rd Generation (0.358-3.74) uIU/mL Salicylates (2.8-20) mg/dL Acetaminophen (10-30) ug/mL Ethyl Alcohol (0.00) gm% SARS-CoV-2 RNA (APRIL) Negative (NEGATIVE) Medications Discontinued Medications Generic Name Dose Route Start Last Admin Trade Name Freq PRN Reason Stop Dose Admin Haloperidol Lactate 10 mg 09/20/20 15:26 09/20/20 15:36 Haloperidol Lactate 5 Mg/Ml Sdv IM 09/20/20 15:27 10 mg ONETIME ONE Administration Re-Assessment/Re-Exam: Labs have returned however the lab techs call me and tell me that we are out of drug screen packets. Hospital hospice social worker states that there is a bed available at [facility] in [place]. I have called and spoken to Dr. Amaya, psychiatrist basket person and she has agreed to accept him under her care. The patient will be transported by ambulance with [employer] accompanying them. Patient will be transferred at 1800 our time. Covid swab is still pending. I went in to speak to the patient and his mom is now at the bedside. She updates me and tells me that the patient was actually taking medications and elected to quit taking them about 6 months ago. She states that she noticed symptoms in him approximately 1 month ago and did ask him and he denied any symptoms at that time. Departure - Departure Time of Disposition: 18:00 Disposition: DC/Tfer to Psych Hosp/Unit 65 Condition: Good Clinical Impression: Acute psychosis - Discharge Information Referrals: Manuelito Decker NP [Primary Care Provider] - Forms: ED Department Discharge Sepsis Event Note (ED) - Evaluation Sepsis Screening Result: No Definite Risk - Focused Exam Vital Signs: Vital Signs Temp Pulse Resp BP Pulse Ox 09/20/20 15:18 96.8 F L 87 18 155/95 H 96 - My Orders Last 24 Hours: My Active Orders 09/20/20 15:35 EKG Documentation Completion [RC] STAT UA RFX [place] AND CULT IF INDIC [URIN] Stat 09/20/20 16:45 DRUG SCREEN, URINE (NPL) Stat - Assessment/Plan Last 24 Hours: My Active Orders 09/20/20 15:35 EKG Documentation Completion [RC] STAT UA RFX [place] AND CULT IF INDIC [URIN] Stat 09/20/20 16:45 DRUG SCREEN, URINE (NPL) Stat
[2020-09-20 16:31] LABS: ACETAMINOPHEN 0 ug/mL (10-30)
== END 2020-09-20 18:34 ==
LOC: JD.ED 15:07
DX: F23 Brief psychotic disorder (principal); Z91.030 Bee allergy status; Z20.822 Contact with and (suspected) exposure to COVID-19
CPT/HCPCS: 36415; 80053; 80143; 80179; 80307; 83735; 84443; 85025; 87635; 93005; 96372; 99285; J1630; 99284; U0002

== ENCOUNTER 2020-10-10 21:23 | Emergency (ER) | payer BC, OTHER ==
[2020-10-10] MEDS ORDERED: Haloperidol Lactate 5 MG/ML SDV IM ONE (22:04)
--- NOTE | 2020-10-10 22:07 | EDM.PDOCBH ---
ED HPI GENERAL MEDICAL PROBLEM - General Chief Complaint: Behavioral/Psych Stated Complaint: NEEDS A SHOT BUT DOESN'T WANT TO HARM SELF. Time Seen by Provider: 10/10/20 21:48 Source of Information: Reports: Patient, RN Notes Reviewed History Limitations: Reports: No Limitations - History of Present Illness INITIAL COMMENTS - FREE TEXT/NARRATIVE: Patient is a 34-year-old male who presents to the ER today for edema and once again speaking for him. The patient has have breaks in his speech, when he talks with me, he has times where a demon seems to be speaking through him, and now it is evolved also into God speaking through him to me. This demon seems to be a different one from the time past where he thought he was possessed. He now states that he is "opressed", and that the demon does not want to hurt him or hurt anyone else. The demon told him to come to the ER for Haldol shot to see if this could help. But the demon also told him to quit taking his regular med ications. Patient states that he has had no fevers or chills, cough or shortness of breath, nausea/vomiting/diarrhea. Patient did have a recent psych hospitalization. And was started back on medications for his psychosis. Patient also speaks of tribulations, or trials that the human race will face. - Related Data Allergies Allergy/AdvReac Type Severity Reaction Status Date / Time bee venom protein (honey bee) Allergy Other Verified 09/20/20 15:22 Home Meds: Home Meds Lurasidone [Latuda] 40 mg PO DAILY 09/20/20 [History] buPROPion HCL [Wellbutrin Sr] 150 mg PO BID 09/20/20 [History] haloperidoL [Haldol] 2 mg PO Q12HR #10 tab 09/20/20 [Rx] risperiDONE [Risperidone] 3 mg PO BEDTIME 09/20/20 [History] Past Medical History Musculoskeletal History: Reports: Other (See Below) Other Musculoskeletal History: left ankle/tendon surgery Psychiatric History: Reports: ADHD, Depression, Emotional Problems, Hallucinations, Psych Hospitalization(s), Psychosis - Past Surgical History HEENT Surgical History: Reports: Oral Surgery Musculoskeletal Surgical History: Reports: Other (See Below) Social & Family History - Family History Family Medical History: No Pertinent Family History - Caffeine Use Caffeine Use: Reports: Coffee, Energy Drinks - Living Situation & Occupation Living situation: Reports: Single, Alone 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 ED EXAM, BEHAVIORAL HEALTH - Physical Exam Exam: See Below Exam Limited By: No Limitations General Appearance: Alert, WD/WN, No Apparent Distress Respiratory/Chest: No Respiratory Distress, Lungs Clear, Normal Breath Sounds, No Accessory Muscle Use, Chest Non-Tender Cardiovascular: Normal Peripheral Pulses, Regular Rate, Rhythm, No Edema GI/Abdominal: Normal Bowel Sounds, Soft, Non-Tender, No Distention, No Mass Extremities: Normal Inspection, Normal Capillary Refill Neurological: Alert, No Motor/Sensory Deficits, Oriented x 3 Psychiatric: Sabianist Delusions, Auditory Hallucinations. No: Flight of Ideas, Homicidal Thoughts, Suicidal Plan, Suicidal Thoughts, Visual Hallucinations, Grandiose Thoughts, Pressured Speech, Paranoid Thoughts, Threatening Behavior Skin Exam: Warm, Dry, Intact, Normal color, No rash COURSE, BEHAVIORAL HEALTH COMP - Course Vital Signs: Last Vital Signs Temp 96.8 F L 10/10/20 21:42 Pulse 110 H 10/10/20 21:42 Resp 20 10/10/20 21:42 BP 165/107 H 10/10/20 21:42 Pulse Ox 95 10/10/20 21:42 Orders, Labs, Meds: Medications Discontinued Medications Generic Name Dose Route Start Last Admin Trade Name Vasile PRN Reason Stop Dose Admin Haloperidol Lactate 10 mg 10/10/20 22:04 Haloperidol Lactate 5 Mg/Ml Sdv IM 10/10/20 22:05 ONETIME ONE Discharge vs Psych Eval/Treatment:: 10/10/20 22:11 Patient presents to the ER for the evaluation of the demon speaking 3 him once a gain. He is requesting a shot of Haldol, to be able to go home and sleep. After thorough examination and talk with the patient, he does have yarsanism delusions but he states that the demon does not want to hurt him or hurt anyone else at this time. 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 Patient states that he would be willing to start these medications again at home. Have ordered 10 mg Haldol, I do believe the patient would be safe to return home, as he is not a threat to himself or anyone else at this time. Departure - Departure Time of Disposition: 22:05 Disposition: Home, Self-Care 01 Condition: Fair Clinical Impression: Hearing voices - Discharge Information *PRESCRIPTION DRUG MONITORING PROGRAM REVIEWED*: No *COPY OF PRESCRIPTION DRUG MONITORING REPORT IN PATIENT RAEANN: No Referrals: Manuelito Decker NP [Primary Care Provider] - Forms: ED Department Discharge Additional Instructions: You were evaluated in the ER today for hearing voices, and having a demon speak for you. You were given an injection of Haldol for management of this, you will need to go home and sleep. Highly and strongly recommend that you continue to take your medications as set forth by your health care team, to help provide stability for your mental health. Please return to the ER at any time if your symptoms should change or worsen. Sepsis Event Note (ED) - Evaluation Sepsis Screening Result: No Definite Risk - Focused Exam Vital Signs: Vital Signs Temp Pulse Resp BP Pulse Ox 10/10/20 21:42 96.8 F L 110 H 20 165/107 H 95
== END 2020-10-10 22:17 | disposition home or self-care (01) ==
LOC: JD.ED 21:23
DX: R49.9 Unspecified voice and resonance disorder (principal)
CPT/HCPCS: 96372; 99284; J1630; 99283

== ENCOUNTER 2020-10-11 17:19 | Emergency (ER) | payer BC, OTHER ==
[2020-10-11] MEDS ORDERED: Haloperidol Lactate 5 MG/ML SDV IM ONE (17:59)
[2020-10-11] MEDS ORDERED: LORazepam 2 MG/ML SDV IM ONE (18:00)
--- NOTE | 2020-10-11 18:52 | EDM.PDOCBH ---
ED HPI GENERAL MEDICAL PROBLEM - General Chief Complaint: Behavioral/Psych Stated Complaint: MENTAL EVAL Time Seen by Provider: 10/11/20 17:38 Source of Information: Reports: Patient, RN Notes Reviewed History Limitations: Reports: No Limitations - History of Present Illness INITIAL COMMENTS - FREE TEXT/NARRATIVE: Patient is a 34-year-old male presenting to the emergency department with complaints of "being oppressed by demons". Patient has history of psychosis and has been seen in this emergency department a number of occasions, including yesterday. He speaks as God speaking through him and refers to himself in the third person. Intermittently, the demon that is "oppressing him "will come through when he will speak in tongues and his body will shake and he writhes a round. He denies being suicidal but states he does not know what the demons will do. He states this is not a psychosis but rather God speaking through him. He was seen in this emergency department last evening and received 10 mg of IM Haldol. He reports that he slept for a great deal the time but that this did not stop the demons. 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 He is prescribed fluphenazine and benztropine which he took last evening, however prior to this he had not taken his medications for quite some time. Denies any illicit drug or alcohol use. He did have a previous psychiatric hospitalizations at [facility] in [place] in August. - Related Data Allergies Allergy/AdvReac Type Severity Reaction Status Date / Time bee venom protein (honey bee) Allergy Other Verified 10/11/20 17:33 Home Meds: Home Meds Benztropine [Cogentin] 1 mg PO DAILY 10/11/20 [History] fluPHENAZine HCl [Fluphenazine HCl] 1 tab PO DAILY 10/11/20 [History] Past Medical History - Past Health History Medical/Surgical History: Denies Medical/Surgical History Musculoskeletal History: Reports: Other (See Below) Other Musculoskeletal History: left ankle/tendon surgery Psychiatric History: Reports: ADHD, Depression, Emotional Problems, Hallucinations, Psych Hospitalization(s) - Past Surgical History HEENT Surgical History: Reports: Oral Surgery Social & Family History - Family History Family Medical History: No Pertinent Family History - Tobacco Use Tobacco Use Status *Q: Never Tobacco User - Caffeine Use Caffeine Use: Reports: Coffee - Recreational Drug Use Recreational Drug Use: No - Living Situation & Occupation Living situation: Reports: Single, Alone 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 Denies: Homicidal Ideation, Suicidal Ideation Hematologic/Lymphatic: Reports: No Symptoms Immunologic: Reports: No Symptoms ED EXAM, BEHAVIORAL HEALTH - Physical Exam Exam: See Below Exam Limited By: Altered Mental Status General Appearance: Alert, WD/WN, No Apparent Distress Respiratory/Chest: No Respiratory Distress, Lungs Clear, Normal Breath Sounds, No Accessory Muscle Use, Chest Non-Tender Cardiovascular: Normal Peripheral Pulses, Regular Rate, Rhythm, No Edema, No Gallop, No JVD, No Murmur, No Rub GI/Abdominal: Normal Bowel Sounds, Soft, Non-Tender, No Organomegaly, No Distention, No Abnormal Bruit, No Mass Neurological: Alert, CN II-XII Intact, No Motor/Sensory Deficits, Oriented x 3 Psychiatric: Alert, Flight of Ideas, Protestant Delusions, Tangential Thoughts, Grandiose Thoughts. No: Homicidal Thoughts, Suicidal Plan, Paranoid Thoughts, Threatening Behavior #1 Interpretation EKG Date: 10/11/20 Time: 18:26 Rhythm: NSR Rate (Beats/Min): 77 [place]: Normal P-Wave: Present QRS: Normal ST-T: Normal QT: Normal COURSE, BEHAVIORAL HEALTH COMP - Course Vital Signs: Last Vital Signs Temp 96.9 F 10/11/20 17:36 Pulse 65 10/11/20 17:36 Resp 14 10/11/20 17:36 BP 156/92 H 10/11/20 17:36 Pulse Ox 96 10/11/20 17:36 Orders, Labs, Meds: Active Orders 24 hr Category Date Time Status EKG Documentation Completion [RC] STAT Care 10/11/20 18:07 Active DRUG SCREEN, URINE [URCHEM] Stat Lab 10/11/20 18:07 Ordered Laboratory Tests 10/11/20 10/11/20 10/11/20 Range/Units 18:15 18:15 18:15 WBC 13.69 H (4.23-9.07) K/mm3 RBC 5.66 (4.63-6.08) M/mm3 Hgb 15.6 (13.7-17.5) gm/dl Hct 46.7 (40.1-51.0) % MCV 82.5 (79.0-92.2) fl MCH 27.6 (25.7-32.2) pg MCHC 33.4 (32.2-35.5) g/dl RDW Std Deviation 40.0 (35.1-43.9) fL Plt Count 390 H (163-337) K/mm3 MPV 8.5 L (9.4-12.3) fl Neutrophils % (Manual) 73 H (40-60) % Band Neutrophils % 2 (0-10) % Lymphocytes % (Manual) 24 (20-40) % Atypical Lymphs % 0 % Monocytes % (Manual) 1 L (2-10) % Eosinophils % (Manual) 0 L (0.8-7.0) % Basophils % (Manual) 0 L (0.2-1.2) Platelet Estimate Adequate Plt Morphology Comment Normal RBC Morph Comment Normal Sodium 138 (136-145) mEq/L Potassium 3.6 (3.5-5.1) mEq/L Chloride 102 (98-107) mEq/L Carbon Dioxide 24 (21-32) mEq/L Anion Gap 15.6 H (5-15) BUN 5 L (7-18) mg/dL Creatinine 0.7 (0.7-1.3) mg/dL Est Cr Clr Drug Dosing 146.57 mL/min Estimated GFR (MDRD) > 60 (>60) mL/min BUN/Creatinine Ratio 7.1 L (14-18) Glucose 98 (70-99) mg/dL Calcium 8.8 (8.5-10.1) mg/dL Total Bilirubin 1.3 H (0.2-1.0) mg/dL AST 24 (15-37) U/L ALT 83 H (16-63) U/L Alkaline Phosphatase 111 (46-116) U/L Total Protein 7.5 (6.4-8.2) g/dl Albumin 3.6 (3.4-5.0) g/dl Globulin 3.9 gm/dL Albumin/Globulin Ratio 0.9 L (1-2) TSH 3rd Generation 1.565 (0.358-3.74) uIU/mL Salicylates < 0.2 L (2.8-20) mg/dL Acetaminophen 0 L (10-30) ug/mL Ethyl Alcohol 0.00 (0.00) gm% SARS-CoV-2 RNA (APRIL) (NEGATIVE) 10/11/20 Range/Units 20:00 WBC (4.23-9.07) K/mm3 RBC (4.63-6.08) M/mm3 Hgb (13.7-17.5) gm/dl Hct (40.1-51.0) % MCV (79.0-92.2) fl MCH (25.7-32.2) pg MCHC (32.2-35.5) g/dl RDW Std Deviation (35.1-43.9) fL Plt Count (163-337) K/mm3 MPV (9.4-12.3) fl Neutrophils % (Manual) (40-60) % Band Neutrophils % (0-10) % Lymphocytes % (Manual) (20-40) % Atypical Lymphs % % Monocytes % (Manual) (2-10) % Eosinophils % (Manual) (0.8-7.0) % Basophils % (Manual) (0.2-1.2) Platelet Estimate Plt Morphology Comment RBC Morph Comment Sodium (136-145) mEq/L Potassium (3.5-5.1) mEq/L Chloride (98-107) mEq/L Carbon Dioxide (21-32) mEq/L Anion Gap (5-15) BUN (7-18) mg/dL Creatinine (0.7-1.3) mg/dL Est Cr Clr Drug Dosing mL/min Estimated GFR (MDRD) (>60) mL/min BUN/Creatinine Ratio (14-18) Glucose (70-99) mg/dL Calcium (8.5-10.1) mg/dL Total Bilirubin (0.2-1.0) mg/dL AST (15-37) U/L ALT (16-63) U/L Alkaline Phosphatase (46-116) U/L Total Protein (6.4-8.2) g/dl Albumin (3.4-5.0) g/dl Globulin gm/dL Albumin/Globulin Ratio (1-2) TSH 3rd Generation (0.358-3.74) uIU/mL Salicylates (2.8-20) mg/dL Acetaminophen (10-30) ug/mL Ethyl Alcohol (0.00) gm% SARS-CoV-2 RNA (APRIL) Negative (NEGATIVE) Medications Discontinued Medications Generic Name Dose Route Start Last Admin Trade Name Freq PRN Reason Stop Dose Admin Haloperidol Lactate 10 mg 10/11/20 17:59 10/11/20 18:25 Haloperidol Lactate 5 Mg/Ml Sdv IM 10/11/20 18:00 10 mg ONETIME ONE Administration Lorazepam 2 mg 10/11/20 18:00 10/11/20 18:19 Lorazepam 2 Mg/Ml Sdv IM 10/11/20 18:01 2 mg ONETIME ONE Administration Medical Clearance: As above, patient is a 34-year-old male presenting to the emergency department in acute psychosis. I feel at this point, psychiatric hospitalization for treatment of this is indicated as outpatient treatment has been attempted without success. Emergency hold paperwork has been initiated. Physical exam is grossly unremarkable. I have ordered standard psychiatric work-up for medical clearance. We will give him 10 mg of IM Haldol and 2 mg of IM Ativan. 10/11/20 21:12 Hematology was significant for WBC slightly elevated 13.69. He is otherwise unremarkable. Patient has not provided a urine thus far. Covid screen is negative. I placed a call to the one call [facility] in [place] and am waiting for callback. 10/11/20 21:51 Case was discussed with the psychiatrist at [facility], Dr. Amaya. She has accepted the patient for admission. [facility] is here to transport. Patient updated and is in agreement. Departure - Departure Time of Disposition: 21:45 Disposition: DC/Tfer to Psych Hosp/Unit 65 Condition: Good Clinical Impression: Acute psychosis, Hallucinations, Hearing voices - Discharge Information Referrals: Manuelito Decker [employer] DESIGNER [Primary Care Provider] - Forms: ED Department Discharge Sepsis Event Note (ED) - Evaluation Sepsis Screening Result: No Definite Risk - Focused Exam Vital Signs: Vital Signs Temp Pulse Resp BP Pulse Ox 10/11/20 17:36 96.9 F 65 14 156/92 H 96 - My Orders Last 24 Hours: My Active Orders 10/11/20 18:07 EKG Documentation Completion [RC] STAT DRUG SCREEN, URINE [URCHEM] Stat - Assessment/Plan Last 24 Hours: My Active Orders 10/11/20 18:07 EKG Documentation Completion [RC] STAT DRUG SCREEN, URINE [URCHEM] Stat
[2020-10-11 19:05] LABS: ACETAMINOPHEN 0 ug/mL (10-30)
== END 2020-10-11 22:06 ==
LOC: JD.ED 17:19
DX: F23 Brief psychotic disorder (principal); Z91.030 Bee allergy status; Z79.899 Other long term (current) drug therapy
CPT/HCPCS: 36415; 80053; 80143; 80179; 80307; 84443; 85007; 85027; 87635; 93005; 96372; 99285; J1630; J2060; 99284; U0002

== ENCOUNTER 2021-07-14 14:20 | Emergency (ER) | payer MEDICAID | END 2021-07-14 15:07 | disposition home or self-care (01) | LOC: JD.ED 14:20 | DX: K12.1 Other forms of stomatitis (principal); Z91.030 Bee allergy status | CPT/HCPCS: 99282; 99283 ==

== ENCOUNTER 2022-04-04 07:58 | Emergency (ER) | payer MEDICAID ==
[2022-04-04 14:50] LABS: CORONAVIRUS COVID-19 NAA NEGATIVE (NEGATIVE)
== END 2022-04-04 14:03 | disposition home or self-care (01) ==
LOC: JD.ED 07:58
DX: F23 Brief psychotic disorder (principal); Z91.030 Bee allergy status; Z20.822 Contact with and (suspected) exposure to COVID-19
CPT/HCPCS: 0241U; 36415; 80053; 80143; 80179; 80306; 80307; 81001; 84443; 85025; 87651; 99284

== ENCOUNTER 2022-04-04 15:30 | Emergency (ER) | payer MEDICAID ==
[2022-04-04] MEDS ORDERED: Haloperidol Lactate 5 MG/ML SDV IM ONE (16:50)
[2022-04-04] MEDS ORDERED: Benzocaine/Cetylpyridinium/Menthol Lozenge MUCMEM ONE (17:06)
== END 2022-04-04 18:55 ==
LOC: JD.ED 15:30
DX: F22 Delusional disorders (principal); F41.1 Generalized anxiety disorder; F42.8 Other obsessive-compulsive disorder; T43 Poisoning by, adverse effect of and underdosing of psychotropic drugs, not elsewhere classified; Z91.030 Bee allergy status
CPT/HCPCS: 96372; 99284; A9270; J1630

== ENCOUNTER 2022-04-29 19:18 | Emergency (ER) | payer MEDICAID | END 2022-04-29 21:04 | disposition home or self-care (01) | LOC: JD.ED 19:18 | DX: F91.9 Conduct disorder, unspecified (principal); I10 Essential (primary) hypertension; Z91.030 Bee allergy status | CPT/HCPCS: 36415; 80053; 80143; 80179; 80306; 80307; 84443; 85007; 85027; 93005; 93010; 99283 ==

== ENCOUNTER 2022-05-10 09:07 | Emergency (ER) | payer BC, MEDICAID, OTHER ==
[2022-05-10] MEDS ORDERED: Diphtheria,Pertussis(Acell),Tetanus Vaccine 0.5 ML Syringe IM ONE (11:21)
[2022-05-10] MEDS ORDERED: Ziprasidone HCl 20 MG Cap PO ONE (11:32)
[2022-05-10] MEDS ORDERED: Ziprasidone HCl 20 MG Cap PO SCH (21:00)
== END 2022-05-10 14:15 | disposition other institution (70) ==
LOC: JD.ED 09:07
DX: S51.812A Laceration without foreign body of left forearm, initial encounter (principal); F23 Brief psychotic disorder; I10 Essential (primary) hypertension; Z91.030 Bee allergy status; W26.8XXA Contact with other sharp object(s), not elsewhere classified, initial encounter
CPT/HCPCS: 12002; 36415; 80053; 80143; 80179; 80306; 80307; 84443; 85025; 90471; 90715; 93005; 99285; A9270

== ENCOUNTER 2022-05-11 19:16 | Emergency (ER) | payer MEDICAID | END 2022-05-11 19:28 | disposition left against medical advice (07) | LOC: JD.ED 19:16 | DX: Z53.21 Procedure and treatment not carried out due to patient leaving prior to being seen by health care provider (principal) | CPT/HCPCS: 93010; 99284 ==

== ENCOUNTER 2022-05-12 14:07 | Emergency (ER) | payer MEDICAID ==
[2022-05-12] MEDS ORDERED: Ziprasidone HCl 20 MG Cap PO ONE (14:24)
== END 2022-05-12 19:23 ==
LOC: JD.ED 14:07
DX: H91.8X9 Other specified hearing loss, unspecified ear (principal); I10 Essential (primary) hypertension; Z91.030 Bee allergy status; Z20.822 Contact with and (suspected) exposure to COVID-19
CPT/HCPCS: 36415; 80053; 80143; 80179; 80306; 80307; 84443; 85025; 87635; 93005; 99285; A9270; U0002

== ENCOUNTER 2022-05-13 23:46 | Emergency (ER) | payer MEDICAID ==
[2022-05-14] MEDS ORDERED: Lidocaine 2% 11 ML Jelly Filled Syringe MUCMEM STA (00:49)
[2022-05-14] MEDS ORDERED: Tamsulosin 0.4 MG Cap.ER PO ONE (00:57)
== END 2022-05-14 02:26 | disposition home or self-care (01) ==
LOC: JD.ED 23:46
DX: R33.9 Retention of urine, unspecified (principal); I10 Essential (primary) hypertension; E66.9 Obesity, unspecified; Z91.030 Bee allergy status; Z88.8 Allergy status to other drugs, medicaments and biological substances; Z68.43 Body mass index [BMI] 50.0-59.9, adult
CPT/HCPCS: 51702; 81001; 99284; A9270; 99283

== ENCOUNTER 2022-05-14 12:31 | Emergency (ER) | payer MEDICAID | END 2022-05-14 14:30 | disposition left against medical advice (07) | LOC: JD.ED 12:31 | DX: Z53.21 Procedure and treatment not carried out due to patient leaving prior to being seen by health care provider (principal) ==

== ENCOUNTER 2022-05-26 18:40 | Emergency (ER) | payer MEDICAID ==
[2022-05-26] MEDS ORDERED: diphenhydrAMINE 50 MG Cap PO ONE (19:48)
== END 2022-05-26 20:18 | disposition home or self-care (01) ==
LOC: JD.ED 18:40
DX: G25.1 Drug-induced tremor (principal); T50.905A Adverse effect of unspecified drugs, medicaments and biological substances, initial encounter; I10 Essential (primary) hypertension; E66.9 Obesity, unspecified; Z91.030 Bee allergy status; Z88.8 Allergy status to other drugs, medicaments and biological substances; Z79.899 Other long term (current) drug therapy; Z72.0 Tobacco use; Z68.43 Body mass index [BMI] 50.0-59.9, adult
CPT/HCPCS: 99283; Q0163

== ENCOUNTER 2022-05-31 12:44 | Emergency (ER) | payer MEDICAID ==
[2022-05-31] MEDS ORDERED: LORazepam 2 MG/ML SDV IVPUSH ONE ×2 (13:47→16:11)
[2022-05-31 15:06] LABS: ESTIMATED GFR 115 mL/min (>60)
[2022-05-31 15:38] LABS: ACETAMINOPHEN 0 ug/mL (10-30)
[2022-05-31 15:53] LABS: CORONAVIRUS COVID-19 NAA NEGATIVE (NEGATIVE)
== END 2022-05-31 17:45 ==
LOC: JD.ED 12:44
DX: F22 Delusional disorders (principal); F23 Brief psychotic disorder; I10 Essential (primary) hypertension; E66.9 Obesity, unspecified; Z72.0 Tobacco use; Z91.030 Bee allergy status; Z88.8 Allergy status to other drugs, medicaments and biological substances; Z79.899 Other long term (current) drug therapy; Z20.822 Contact with and (suspected) exposure to COVID-19
CPT/HCPCS: 0241U; 36415; 80053; 80143; 80164; 80179; 80306; 80307; 84443; 85025; 93005; 96374; 96376; 99285; J2060; 99284

== ENCOUNTER 2022-08-20 16:54 | Emergency (ER) | payer BC, MEDICAID, OTHER | END 2022-08-20 17:20 | disposition left against medical advice (07) | LOC: JD.ED 16:54 | DX: Z53.21 Procedure and treatment not carried out due to patient leaving prior to being seen by health care provider (principal) ==

== ENCOUNTER 2022-10-16 20:03 | Emergency (ER) | payer MEDICAID ==
[2022-10-16 21:49] LABS: BASOPHILS ABSOLUTE AUTO 0.03 K/mm3 (0.01-0.08); BASOPHILS PERCENT AUTO 0.2 % (0.1-1.2); EOSINOPHILS ABSOLUTE AUTO 0.19 K/mm3 (0.04-0.54); EOSINOPHILS PERCENT AUTO 1.1 (0.8-7.0); HEMATOCRIT 46.3 % (40.1-51.0); HEMOGLOBIN 15.7 gm/dl (13.7-17.5); IMMATURE GRAN ABSOLUTE AUTO 0.12 K/mm3 (0.00-0.10); IMMATURE GRAN PERCENT AUTO 0.7 % (<=1.0); LYMPHOCYTES ABSOLUTE AUTO 3.98 K/mm3 (1.32-3.57); LYMPHOCYTES PERCENT AUTO 23.9 % (21.8-53.1); MEAN CORPUSCULAR HEMOGLOBIN 27.6 pg (25.7-32.2); MEAN CORPUSCULAR HGB CONC 33.9 g/dl (32.2-35.5); MEAN CORPUSCULAR VOLUME 81.4 fl (79.0-92.2); MEAN PLATELET VOLUME 8.5 fl (9.4-12.3); MONOCYTES ABSOLUTE AUTO 1.38 K/mm3 (0.30-0.82); MONOCYTES PERCENT AUTO 8.3 % (5.3-12.2); NEUTROPHILS ABSOLUTE AUTO 10.93 K/mm3 (1.78-5.38); NEUTROPHILS PERCENT AUTO 65.8 % (34.0-67.9); PLATELET COUNT,PLT 398 K/mm3 (163-337); RED BLOOD CELL COUNT 5.69 M/mm3 (4.63-6.08); WHITE BLOOD CELL COUNT,WBC 16.63 K/mm3 (4.23-9.07)
[2022-10-16 22:33] LABS: A/G RATIO 0.8 (1-2); ALBUMIN 3.2 g/dl (3.4-5.0); ANION GAP 12.8 (5-15); BILIRUBIN TOTAL 0.7 mg/dL (0.2-1.0); BUN/CREATININE RATIO 12.2 (14-18); CALCIUM 8.9 mg/dL (8.5-10.1); CREATININE 0.9 mg/dL (0.7-1.3); EST CRCL DRUG DOSING (CG) 111.89 mL/min; POTASSIUM,K 3.8 mEq/L (3.5-5.1); PROTEIN TOTAL,TP 7.4 g/dl (6.4-8.2); TSH 1.984 uIU/mL (0.358-3.74)
== END 2022-10-17 02:20 | disposition home or self-care (01) ==
LOC: JD.ED 20:03
DX: G47.09 Other insomnia (principal); E66.9 Obesity, unspecified; Z68.43 Body mass index [BMI] 50.0-59.9, adult; Z91.030 Bee allergy status; Z88.8 Allergy status to other drugs, medicaments and biological substances
CPT/HCPCS: 36415; 80053; 84443; 85025; 99283

== ENCOUNTER 2023-03-24 16:26 | Emergency (ER) | payer SELFPAY ==
[2023-03-24 16:55] VITALS: BP 170/90; PULSE 111
== END 2023-03-24 16:52 | disposition left against medical advice (07) ==
LOC: JD.ED 16:26
DX: Z53.21 Procedure and treatment not carried out due to patient leaving prior to being seen by health care provider (principal)

== ENCOUNTER 2023-06-29 21:09 | Emergency (ER) | payer BC, MEDICAID ==
[2023-06-29] MEDS: Benzonatate 100 MG Cap PO ONE (21:47)
[2023-06-29] MEDS: Ibuprofen 600 MG Tab PO ONE (21:47)
[2023-06-29 22:07] LABS: CORONAVIRUS COVID-19 NAA NEGATIVE (NEGATIVE); INFLUENZA A NAA NEGATIVE (NEGATIVE); RESPIRATORY SYNCYTIAL VIR NAA POSITIVE (NEGATIVE)
== END 2023-06-29 22:20 | disposition home or self-care (01) ==
LOC: JD.ED 21:09
DX: R05.9 Cough, unspecified (principal); B97.4 Respiratory syncytial virus as the cause of diseases classified elsewhere; I10 Essential (primary) hypertension; E66.9 Obesity, unspecified; Z91.030 Bee allergy status; Z88.8 Allergy status to other drugs, medicaments and biological substances
CPT/HCPCS: 0241U; 71046; 99284; A9270; 99283

== ENCOUNTER 2023-07-05 21:53 | Emergency (ER) | payer SELFPAY ==
[2023-07-05] MEDS: Pseudoephedrine 30 MG Tab PO ONE (23:25)
== END 2023-07-05 22:46 | disposition home or self-care (01) ==
LOC: JD.ED 21:53
DX: H65.93 Unspecified nonsuppurative otitis media, bilateral (principal); I10 Essential (primary) hypertension; E66.9 Obesity, unspecified; F17.210 Nicotine dependence, cigarettes, uncomplicated; Z91.030 Bee allergy status; Z88.8 Allergy status to other drugs, medicaments and biological substances; Z68.25 Body mass index [BMI] 25.0-25.9, adult
CPT/HCPCS: 99283

== ENCOUNTER 2023-08-10 18:50 | Emergency (ER) | payer SELFPAY | END 2023-08-10 19:20 | disposition left against medical advice (07) | LOC: JD.ED 18:50 | DX: Z53.21 Procedure and treatment not carried out due to patient leaving prior to being seen by health care provider (principal) ==

== ENCOUNTER 2023-12-30 18:42 | Emergency (ER) | payer SELFPAY ==
[2023-12-30 19:52] LABS: BASOPHILS ABSOLUTE AUTO 0.1 K/mm3 (0.0-0.2); BASOPHILS PERCENT AUTO 0.4 % (0.0-1.0); EOSINOPHILS ABSOLUTE AUTO 0.2 K/mm3 (0.0-0.4); EOSINOPHILS PERCENT AUTO 1.2 % (0.0-6.0); HEMATOCRIT 47.2 % (42.0-52.0); HEMOGLOBIN 15.6 gm/dl (14.0-18.0); IMMATURE GRAN ABSOLUTE AUTO 0.12 K/mm3 (0.00-0.05); IMMATURE GRAN PERCENT AUTO 0.7 % (0.0-0.4); LYMPHOCYTES ABSOLUTE AUTO 3.4 K/mm3 (1.0-4.8); LYMPHOCYTES PERCENT AUTO 19.7 % (24.0-44.0); MEAN CORPUSCULAR HEMOGLOBIN 27.1 pg (28.0-32.0); MEAN CORPUSCULAR HGB CONC 33.1 g/dl (32.0-36.0); MEAN CORPUSCULAR VOLUME 82.1 fl (83.0-99.0); MEAN PLATELET VOLUME 8.6 fl (9.4-12.4); MONOCYTES ABSOLUTE AUTO 0.9 K/mm3 (0.0-0.8); MONOCYTES PERCENT AUTO 5.4 % (0.0-8.0); NEUTROPHILS ABSOLUTE AUTO 12.5 K/mm3 (1.8-7.7); NEUTROPHILS PERCENT AUTO 72.6 % (41.0-71.0); PLATELET COUNT,PLT 396 K/mm3 (150-400); RED BLOOD CELL COUNT 5.75 M/mm3 (4.52-5.90); WHITE BLOOD CELL COUNT,WBC 17.27 K/mm3 (3.9-11.3)
[2023-12-30 20:14] LABS: A/G RATIO 0.9 (1-2); ALBUMIN 3.3 g/dl (3.4-5.0); ANION GAP 13.3 (5-15); BILIRUBIN TOTAL 0.9 mg/dL (0.2-1.0); BUN/CREATININE RATIO 7.8 (14-18); CALCIUM 8.7 mg/dL (8.5-10.1); CREATININE 0.9 mg/dL (0.7-1.3); EST CRCL DRUG DOSING (CG) 109.78 mL/min; POTASSIUM,K 3.3 mEq/L (3.5-5.1); PROTEIN TOTAL,TP 7.2 g/dl (6.4-8.2)
[2023-12-30] MEDS: LORazepam 1 MG Tab PO ONE (20:22)
== END 2023-12-30 20:40 | disposition left against medical advice (07) ==
LOC: JD.ED 18:42
DX: F41.9 Anxiety disorder, unspecified (principal); I10 Essential (primary) hypertension; E66.9 Obesity, unspecified; F17.210 Nicotine dependence, cigarettes, uncomplicated; Z86.16 Personal history of COVID-19; Z88.8 Allergy status to other drugs, medicaments and biological substances; Z91.030 Bee allergy status; Z68.43 Body mass index [BMI] 50.0-59.9, adult
CPT/HCPCS: 36415; 80053; 80307; 85025; 99283; A9270

== ENCOUNTER 2024-01-03 19:04 | Emergency (ER) | payer SELFPAY ==
[2024-01-03 20:55] LABS: BASOPHILS ABSOLUTE AUTO 0.1 K/mm3 (0.0-0.2); BASOPHILS PERCENT AUTO 0.4 % (0.0-1.0); EOSINOPHILS ABSOLUTE AUTO 0.2 K/mm3 (0.0-0.4); EOSINOPHILS PERCENT AUTO 1.4 % (0.0-6.0); HEMATOCRIT 48.4 % (42.0-52.0); IMMATURE GRAN ABSOLUTE AUTO 0.17 K/mm3 (0.00-0.05); LYMPHOCYTES ABSOLUTE AUTO 3.6 K/mm3 (1.0-4.8); LYMPHOCYTES PERCENT AUTO 20.3 % (24.0-44.0); MEAN CORPUSCULAR HEMOGLOBIN 27.1 pg (28.0-32.0); MEAN CORPUSCULAR HGB CONC 33.1 g/dl (32.0-36.0); MEAN CORPUSCULAR VOLUME 81.9 fl (83.0-99.0); MEAN PLATELET VOLUME 8.5 fl (9.4-12.4); MONOCYTES ABSOLUTE AUTO 0.9 K/mm3 (0.0-0.8); MONOCYTES PERCENT AUTO 4.8 % (0.0-8.0); NEUTROPHILS ABSOLUTE AUTO 12.7 K/mm3 (1.8-7.7); NEUTROPHILS PERCENT AUTO 72.1 % (41.0-71.0); PLATELET COUNT,PLT 422 K/mm3 (150-400); RED BLOOD CELL COUNT 5.91 M/mm3 (4.52-5.90)
[2024-01-03 21:21] LABS: A/G RATIO 0.8 (1-2); ALBUMIN 3.1 g/dl (3.4-5.0); ANION GAP 16.5 (5-15); BILIRUBIN TOTAL 0.8 mg/dL (0.2-1.0); BUN/CREATININE RATIO 7.5 (14-18); CALCIUM 8.9 mg/dL (8.5-10.1); CREATININE 0.8 mg/dL (0.7-1.3); EST CRCL DRUG DOSING (CG) 123.5 mL/min; POTASSIUM,K 3.5 mEq/L (3.5-5.1); PROTEIN TOTAL,TP 7.1 g/dl (6.4-8.2)
[2024-01-03 22:19] LABS: TSH 2.907 uIU/mL (0.358-3.74)
== END 2024-01-03 22:15 | disposition left against medical advice (07) ==
LOC: JD.ED 19:04
DX: R53.1 Weakness (principal); Z91.030 Bee allergy status; E66.9 Obesity, unspecified; Z68.43 Body mass index [BMI] 50.0-59.9, adult; Z86.16 Personal history of COVID-19; Z88.8 Allergy status to other drugs, medicaments and biological substances
CPT/HCPCS: 36415; 80053; 80143; 80179; 80307; 83735; 84443; 85025; 93005; 93010; 99284; 99285; U0002

== ENCOUNTER 2024-01-04 09:59 | Emergency (ER) | payer SELFPAY | END 2024-01-04 10:57 | disposition left against medical advice (07) | LOC: JD.ED 09:59 | DX: Z53.21 Procedure and treatment not carried out due to patient leaving prior to being seen by health care provider (principal) ==

== ENCOUNTER 2024-01-21 16:49 | Emergency (ER) | payer MEDICARE, MEDICAID ==
[2024-01-21 17:59] LABS: BASOPHILS ABSOLUTE AUTO 0.1 K/mm3 (0.0-0.2); BASOPHILS PERCENT AUTO 0.4 % (0.0-1.0); EOSINOPHILS ABSOLUTE AUTO 0.2 K/mm3 (0.0-0.4); EOSINOPHILS PERCENT AUTO 1.1 % (0.0-6.0); HEMATOCRIT 50.7 % (42.0-52.0); HEMOGLOBIN 16.8 gm/dl (14.0-18.0); IMMATURE GRAN ABSOLUTE AUTO 0.13 K/mm3 (0.00-0.05); IMMATURE GRAN PERCENT AUTO 0.7 % (0.0-0.4); LYMPHOCYTES ABSOLUTE AUTO 4.1 K/mm3 (1.0-4.8); LYMPHOCYTES PERCENT AUTO 21.7 % (24.0-44.0); MEAN CORPUSCULAR HGB CONC 33.1 g/dl (32.0-36.0); MEAN CORPUSCULAR VOLUME 81.5 fl (83.0-99.0); MEAN PLATELET VOLUME 8.5 fl (9.4-12.4); NEUTROPHILS ABSOLUTE AUTO 13.4 K/mm3 (1.8-7.7); NEUTROPHILS PERCENT AUTO 71.1 % (41.0-71.0); PLATELET COUNT,PLT 437 K/mm3 (150-400); RED BLOOD CELL COUNT 6.22 M/mm3 (4.52-5.90); WHITE BLOOD CELL COUNT,WBC 18.82 K/mm3 (3.9-11.3)
[2024-01-21 18:27] LABS: A/G RATIO 0.9 (1-2); ALBUMIN 3.5 g/dl (3.4-5.0); ANION GAP 12.8 (5-15); BILIRUBIN TOTAL 0.5 mg/dL (0.2-1.0); BUN/CREATININE RATIO 11.1 (14-18); CALCIUM 9.3 mg/dL (8.5-10.1); CREATININE 0.9 mg/dL (0.7-1.3); EST CRCL DRUG DOSING (CG) 109.78 mL/min; POTASSIUM,K 3.8 mEq/L (3.5-5.1); PROTEIN TOTAL,TP 7.6 g/dl (6.4-8.2); TSH 1.997 uIU/mL (0.358-3.74)
[2024-01-21 19:23] LABS: BARBITURATE SCREEN,URINE NEGATIVE (CUTOFF=200); BENZODIAZEPINES SCREEN,URINE NEGATIVE (CUTOFF=150); BUPRENORPHINE SCREEN,URINE NEGATIVE (CUTOFF=10); METHADONE SCREEN, URINE NEGATIVE (CUT0FF=200); METHAMPHETAMINES SCREEN, URINE NEGATIVE (CUTOFF=500); OXYCODONE SCREEN,URINE NEGATIVE (CUT0FF=100); THC SCREEN,URINE 20 NG/ML NEGATIVE (CUTOFF=50)
[2024-01-21 19:29] LABS: AMPHETAMINES SCREEN, URINE NEGATIVE (CUTOFF=500)
[2024-01-21] MEDS: LORazepam 1 MG Tab PO ONE (20:05)
== END 2024-01-21 20:00 | disposition home or self-care (01) ==
LOC: JD.ED 16:49
DX: F41.0 Panic disorder [episodic paroxysmal anxiety] (principal); R94.5 Abnormal results of liver function studies; I10 Essential (primary) hypertension; E66.9 Obesity, unspecified; Z68.42 Body mass index [BMI] 45.0-49.9, adult; Z86.16 Personal history of COVID-19; Z91.030 Bee allergy status; Z88.8 Allergy status to other drugs, medicaments and biological substances; Z79.899 Other long term (current) drug therapy
CPT/HCPCS: 36415; 80053; 80143; 80179; 80306; 80307; 83735; 84443; 85025; 99283; A9270-GY

== ENCOUNTER 2024-01-25 19:46 | Emergency (ER) | payer MEDICARE, MEDICAID ==
[2024-01-25] MEDS: OLANZapine 10 MG Vial IM ONE (20:12)
[2024-01-25 20:24] LABS: BASOPHILS ABSOLUTE AUTO 0.1 K/mm3 (0.0-0.2); BASOPHILS PERCENT AUTO 0.3 % (0.0-1.0); EOSINOPHILS ABSOLUTE AUTO 0.2 K/mm3 (0.0-0.4); EOSINOPHILS PERCENT AUTO 1.3 % (0.0-6.0); HEMATOCRIT 46.8 % (42.0-52.0); HEMOGLOBIN 15.7 gm/dl (14.0-18.0); IMMATURE GRAN ABSOLUTE AUTO 0.14 K/mm3 (0.00-0.05); IMMATURE GRAN PERCENT AUTO 0.8 % (0.0-0.4); LYMPHOCYTES ABSOLUTE AUTO 4.6 K/mm3 (1.0-4.8); LYMPHOCYTES PERCENT AUTO 25.9 % (24.0-44.0); MEAN CORPUSCULAR HEMOGLOBIN 27.3 pg (28.0-32.0); MEAN CORPUSCULAR HGB CONC 33.5 g/dl (32.0-36.0); MEAN CORPUSCULAR VOLUME 81.4 fl (83.0-99.0); MEAN PLATELET VOLUME 8.5 fl (9.4-12.4); MONOCYTES ABSOLUTE AUTO 1.1 K/mm3 (0.0-0.8); MONOCYTES PERCENT AUTO 6.4 % (0.0-8.0); NEUTROPHILS ABSOLUTE AUTO 11.6 K/mm3 (1.8-7.7); NEUTROPHILS PERCENT AUTO 65.3 % (41.0-71.0); PLATELET COUNT,PLT 401 K/mm3 (150-400); RED BLOOD CELL COUNT 5.75 M/mm3 (4.52-5.90); WHITE BLOOD CELL COUNT,WBC 17.75 K/mm3 (3.9-11.3)
[2024-01-25 20:55] LABS: A/G RATIO 0.8 (1-2); ALANINE AMINOTRANSFERASE,ALT 62 U/L (16-63); ALBUMIN 3.2 g/dl (3.4-5.0); ALKALINE PHOSPHATASE 147 U/L (46-116); ANION GAP 10.7 (5-15); ASPARTATE AMNIOTRANSFERASE,AST 21 U/L (15-37); BILIRUBIN TOTAL 0.6 mg/dL (0.2-1.0); BLOOD UREA NITROGEN,BUN 10 mg/dL (7-18); CALCIUM 8.9 mg/dL (8.5-10.1); CARBON DIOXIDE,CO2 28 mEq/L (21-32); CHLORIDE,CL 103 mEq/L (98-107); ESTIMATED GFR 100 mL/min (>60); GLUCOSE RANDOM 86 mg/dL (70-99); MAGNESIUM 1.7 mg/dL (1.8-2.4); POTASSIUM,K 3.7 mEq/L (3.5-5.1); SODIUM,NA 138 mEq/L (136-145); TSH 3.434 uIU/mL (0.358-3.74)
[2024-01-25 20:56] LABS: ACETAMINOPHEN 0 ug/mL (10-30)
[2024-01-25 20:57] LABS: APPEARANCE,URINE CLEAR (Clear); BILIRUBIN,URINE NEGATIVE (Negative); COLOR,URINE YELLOW (Yellow); GLUCOSE,URINE NEGATIVE (Negative); KETONES,URINE NEGATIVE (Negative); LEUKOCYTE ESTERASE,URINE NEGATIVE (Negative); NITRITE,URINE NEGATIVE (Negative); OCCULT BLOOD,URINE NEGATIVE (Negative); PH,URINE 6.5 (5.0-8.0); PROTEIN,URINE 1+ (Negative); UROBILINOGEN,URINE 0.2 (0.2-1.0)
[2024-01-25 21:19] LABS: BARBITURATE SCREEN,URINE NEGATIVE (CUTOFF=200); BENZODIAZEPINES SCREEN,URINE NEGATIVE (CUTOFF=150); BUPRENORPHINE SCREEN,URINE NEGATIVE (CUTOFF=10); METHADONE SCREEN, URINE NEGATIVE (CUT0FF=200); METHAMPHETAMINES SCREEN, URINE NEGATIVE (CUTOFF=500); OXYCODONE SCREEN,URINE NEGATIVE (CUT0FF=100); THC SCREEN,URINE 20 NG/ML NEGATIVE (CUTOFF=50)
[2024-01-25 21:21] LABS: BACTERIA,URINE OCCASIONAL /hpf (FEW); MUCUS,URINE FEW /hpf (FEW); RBC,URINE 0-5 /hpf (0-5); SQUAMOUS EPITHELIAL CELLS,UR 0-5 /hpf (0-5); WBC,URINE 0-5 /hpf (0-5)
[2024-01-25 21:22] LABS: AMPHETAMINES SCREEN, URINE NEGATIVE (CUTOFF=500)
[2024-01-25 21:50] LABS: CORONAVIRUS COVID-19 NAA NEGATIVE (NEGATIVE); INFLUENZA A NAA NEGATIVE (NEGATIVE); RESPIRATORY SYNCYTIAL VIR NAA NEGATIVE (NEGATIVE)
== END 2024-01-26 07:40 ==
LOC: JD.ED 19:46
DX: R45.851 Suicidal ideations (principal); F23 Brief psychotic disorder; R47.82 Fluency disorder in conditions classified elsewhere; I10 Essential (primary) hypertension; E66.9 Obesity, unspecified; Z88.8 Allergy status to other drugs, medicaments and biological substances; Z91.030 Bee allergy status; Z86.16 Personal history of COVID-19
CPT/HCPCS: 0241U; 36415; 80053; 80143; 80179; 80306; 80307; 81001; 83735; 84443; 85025; 93005; 96372; 99285; J2405; 93010; J2359

== ENCOUNTER 2024-02-10 06:35 | Emergency (ER) | payer MEDICARE, MEDICAID ==
[2024-02-10] MEDS: Ketorolac 60 MG/2 ML SDV IM ONE (06:56)
[2024-02-10] MEDS: Haloperidol Lactate 5 MG/ML SDV IVPUSH ONE (07:51)
[2024-02-10] MEDS: Sodium Chloride 0.9% 1,000 ML IV ONE (07:51)
[2024-02-10] MEDS: diphenhydrAMINE 50 MG/ML SDV IVPUSH ONE (07:51)
[2024-02-10] MEDS: Sodium Chloride 0.9% 10 ML Syringe FLUSH PRN (07:52)
[2024-02-10] MEDS: Sodium Chloride 0.9% 10 ML Syringe FLUSH ONE (07:52)
[2024-02-10] MEDS: Iopamidol 612 MG/ML 100 ML Bottle IVPUSH ONE (07:58)
[2024-02-10] MEDS: Ketorolac 15 MG/ML SDV IVPUSH ONE (07:59)
[2024-02-10 08:01] LABS: BASOPHILS ABSOLUTE AUTO 0.1 K/mm3 (0.0-0.2); BASOPHILS PERCENT AUTO 0.3 % (0.0-1.0); EOSINOPHILS ABSOLUTE AUTO 0.1 K/mm3 (0.0-0.4); EOSINOPHILS PERCENT AUTO 0.4 % (0.0-6.0); HEMATOCRIT 46.8 % (42.0-52.0); HEMOGLOBIN 15.5 gm/dl (14.0-18.0); IMMATURE GRAN ABSOLUTE AUTO 0.16 K/mm3 (0.00-0.05); IMMATURE GRAN PERCENT AUTO 0.9 % (0.0-0.4); LYMPHOCYTES ABSOLUTE AUTO 2.1 K/mm3 (1.0-4.8); LYMPHOCYTES PERCENT AUTO 12.5 % (24.0-44.0); MEAN CORPUSCULAR HGB CONC 33.1 g/dl (32.0-36.0); MEAN CORPUSCULAR VOLUME 81.4 fl (83.0-99.0); MEAN PLATELET VOLUME 8.9 fl (9.4-12.4); MONOCYTES ABSOLUTE AUTO 0.7 K/mm3 (0.0-0.8); MONOCYTES PERCENT AUTO 3.8 % (0.0-8.0); NEUTROPHILS ABSOLUTE AUTO 14.1 K/mm3 (1.8-7.7); NEUTROPHILS PERCENT AUTO 82.1 % (41.0-71.0); PLATELET COUNT,PLT 384 K/mm3 (150-400); RED BLOOD CELL COUNT 5.75 M/mm3 (4.52-5.90); WHITE BLOOD CELL COUNT,WBC 17.16 K/mm3 (3.9-11.3)
[2024-02-10 08:28] LABS: A/G RATIO 0.9 (1-2); ALANINE AMINOTRANSFERASE,ALT 61 U/L (16-63); ALBUMIN 3.6 g/dl (3.4-5.0); ALKALINE PHOSPHATASE 144 U/L (46-116); ASPARTATE AMNIOTRANSFERASE,AST 25 U/L (15-37); BILIRUBIN TOTAL 0.6 mg/dL (0.2-1.0); BLOOD UREA NITROGEN,BUN 17 mg/dL (7-18); BUN/CREATININE RATIO 14.2 (14-18); CALCIUM 9.4 mg/dL (8.5-10.1); CARBON DIOXIDE,CO2 24 mEq/L (21-32); CHLORIDE,CL 101 mEq/L (98-107); CREATININE 1.2 mg/dL (0.7-1.3); ESTIMATED GFR 80 mL/min (>60); GLUCOSE RANDOM 106 mg/dL (70-99); LIPASE 17 U/L (16-77); PROTEIN TOTAL,TP 7.8 g/dl (6.4-8.2); SODIUM,NA 137 mEq/L (136-145)
[2024-02-10 08:32] LABS: TROPONIN I HIGH SENSITIVITY < 4 pg/mL (<=76)
== END 2024-02-10 10:18 | disposition home or self-care (01) ==
LOC: JD.ED 06:35
DX: R11.2 Nausea with vomiting, unspecified (principal); R10.9 Unspecified abdominal pain; I10 Essential (primary) hypertension; E66.9 Obesity, unspecified; Z68.44 Body mass index [BMI] 60.0-69.9, adult; Z86.16 Personal history of COVID-19; F17.210 Nicotine dependence, cigarettes, uncomplicated; Z91.030 Bee allergy status; Z88.8 Allergy status to other drugs, medicaments and biological substances
CPT/HCPCS: 36415; 74177; 74177-26; 80053; 83605; 83690; 84484; 85025; 93005; 96361; 96372; 96374; 96375; 99284-25; J1200; J1630; J1885; J3490; J7030; Q9967

== ENCOUNTER 2024-04-05 05:26 | Emergency (ER) | payer MEDICARE, MEDICAID ==
[2024-04-05] MEDS: Ketorolac 15 MG/ML SDV IVPUSH ONE (05:42)
[2024-04-05] MEDS: Sodium Chloride 0.9% 1,000 ML IV ONE (05:42)
[2024-04-05 05:43] LABS: BASOPHILS ABSOLUTE AUTO 0.1 K/mm3 (0.0-0.2); BASOPHILS PERCENT AUTO 0.3 % (0.0-1.0); EOSINOPHILS ABSOLUTE AUTO 0.1 K/mm3 (0.0-0.4); EOSINOPHILS PERCENT AUTO 0.6 % (0.0-6.0); HEMATOCRIT 50.6 % (42.0-52.0); HEMOGLOBIN 17.1 gm/dl (14.0-18.0); IMMATURE GRAN PERCENT AUTO 1.5 % (0.0-0.4); LYMPHOCYTES ABSOLUTE AUTO 2.7 K/mm3 (1.0-4.8); LYMPHOCYTES PERCENT AUTO 13.2 % (24.0-44.0); MEAN CORPUSCULAR HEMOGLOBIN 27.9 pg (28.0-32.0); MEAN CORPUSCULAR HGB CONC 33.8 g/dl (32.0-36.0); MEAN CORPUSCULAR VOLUME 82.4 fl (83.0-99.0); MEAN PLATELET VOLUME 8.4 fl (9.4-12.4); MONOCYTES PERCENT AUTO 4.6 % (0.0-8.0); NEUTROPHILS ABSOLUTE AUTO 16.5 K/mm3 (1.8-7.7); NEUTROPHILS PERCENT AUTO 79.8 % (41.0-71.0); PLATELET COUNT,PLT 431 K/mm3 (150-400); RED BLOOD CELL COUNT 6.14 M/mm3 (4.52-5.90); WHITE BLOOD CELL COUNT,WBC 20.68 K/mm3 (3.9-11.3)
[2024-04-05] MEDS: Sodium Chloride 0.9% 10 ML Syringe FLUSH PRN (05:46)
[2024-04-05 06:06] LABS: A/G RATIO 0.8 (1-2); ALBUMIN 3.7 g/dl (3.4-5.0); ANION GAP 14.1 (5-15); BILIRUBIN TOTAL 0.9 mg/dL (0.2-1.0); BUN/CREATININE RATIO 16.4 (14-18); CALCIUM 9.3 mg/dL (8.5-10.1); CREATININE 1.1 mg/dL (0.7-1.3); EST CRCL DRUG DOSING (CG) 104.92 mL/min; MAGNESIUM 1.9 mg/dL (1.8-2.4); POTASSIUM,K 4.1 mEq/L (3.5-5.1); PROTEIN TOTAL,TP 8.2 g/dl (6.4-8.2)
[2024-04-05] MEDS: Iopamidol 612 MG/ML 30 ML SDV IVPUSH ONE (06:07)
[2024-04-05] MEDS: Iopamidol 612 MG/ML 100 ML Bottle IVPUSH ONE (06:07)
[2024-04-05 06:56] LABS: APPEARANCE,URINE CLEAR (Clear); BILIRUBIN,URINE NEGATIVE (Negative); COLOR,URINE YELLOW (Yellow); GLUCOSE,URINE NEGATIVE (Negative); KETONES,URINE NEGATIVE (Negative); LEUKOCYTE ESTERASE,URINE NEGATIVE (Negative); NITRITE,URINE NEGATIVE (Negative); OCCULT BLOOD,URINE NEGATIVE (Negative); PROTEIN,URINE NEGATIVE (Negative); UROBILINOGEN,URINE 0.2 (0.2-1.0)
== END 2024-04-05 07:34 | disposition home or self-care (01) ==
LOC: JD.ED 05:26
DX: R10.13 Epigastric pain (principal); I10 Essential (primary) hypertension; E66.9 Obesity, unspecified; Z68.41 Body mass index [BMI] 40.0-44.9, adult; Z86.16 Personal history of COVID-19; Z88.8 Allergy status to other drugs, medicaments and biological substances; Z91.030 Bee allergy status; Z79.899 Other long term (current) drug therapy
CPT/HCPCS: 36415; 74177; 80053; 81003; 83690; 83735; 85025; 96361; 96374; 99284; J1885; J7030; Q9967

== ENCOUNTER 2024-04-12 19:56 | Emergency (ER) | payer MEDICARE, MEDICAID ==
[2024-04-12] MEDS ORDERED: Naloxone 0.4 MG/ML SDV IVPUSH PRN (20:31)
[2024-04-12] MEDS: Morphine 4 MG/ML Syringe IVPUSH ONE (21:00)
[2024-04-12] MEDS: Sodium Chloride 0.9% 10 ML Syringe FLUSH PRN (21:01)
[2024-04-12 21:08] LABS: BASOPHILS ABSOLUTE AUTO 0.1 K/mm3 (0.0-0.2); BASOPHILS PERCENT AUTO 0.4 % (0.0-1.0); EOSINOPHILS ABSOLUTE AUTO 0.3 K/mm3 (0.0-0.4); EOSINOPHILS PERCENT AUTO 1.4 % (0.0-6.0); HEMOGLOBIN 15.1 gm/dl (14.0-18.0); IMMATURE GRAN ABSOLUTE AUTO 0.14 K/mm3 (0.00-0.05); IMMATURE GRAN PERCENT AUTO 0.7 % (0.0-0.4); LYMPHOCYTES ABSOLUTE AUTO 3.4 K/mm3 (1.0-4.8); LYMPHOCYTES PERCENT AUTO 17.6 % (24.0-44.0); MEAN CORPUSCULAR HEMOGLOBIN 27.1 pg (28.0-32.0); MEAN CORPUSCULAR HGB CONC 32.8 g/dl (32.0-36.0); MEAN CORPUSCULAR VOLUME 82.6 fl (83.0-99.0); MEAN PLATELET VOLUME 8.3 fl (9.4-12.4); MONOCYTES ABSOLUTE AUTO 0.9 K/mm3 (0.0-0.8); MONOCYTES PERCENT AUTO 4.6 % (0.0-8.0); NEUTROPHILS ABSOLUTE AUTO 14.4 K/mm3 (1.8-7.7); NEUTROPHILS PERCENT AUTO 75.3 % (41.0-71.0); PLATELET COUNT,PLT 397 K/mm3 (150-400); RED BLOOD CELL COUNT 5.57 M/mm3 (4.52-5.90); WHITE BLOOD CELL COUNT,WBC 19.08 K/mm3 (3.9-11.3)
[2024-04-12 21:25] LABS: A/G RATIO 0.8 (1-2); ALBUMIN 3.2 g/dl (3.4-5.0); ANION GAP 16.6 (5-15); CALCIUM 8.5 mg/dL (8.5-10.1); EST CRCL DRUG DOSING (CG) 98.8 mL/min; POTASSIUM,K 3.6 mEq/L (3.5-5.1); PROTEIN TOTAL,TP 7.3 g/dl (6.4-8.2)
[2024-04-12 21:28] LABS: LACTIC ACID 0.9 mmol/L (0.4-2.0)
== END 2024-04-12 22:18 | disposition home or self-care (01) ==
LOC: JD.ED 19:56
DX: K80.20 Calculus of gallbladder without cholecystitis without obstruction (principal); I10 Essential (primary) hypertension; E66.9 Obesity, unspecified; F17.210 Nicotine dependence, cigarettes, uncomplicated; Z79.899 Other long term (current) drug therapy; Z91.030 Bee allergy status; Z88.8 Allergy status to other drugs, medicaments and biological substances; Z68.43 Body mass index [BMI] 50.0-59.9, adult
CPT/HCPCS: 36415; 80053; 83605; 83690; 85025; 96374; 99284; J2270

== ENCOUNTER 2024-08-30 18:53 | Emergency (ER) | payer MEDICARE ==
[2024-08-30 20:09] LABS: BASOPHILS ABSOLUTE AUTO 0.1 K/mm3 (0.0-0.2); BASOPHILS PERCENT AUTO 0.3 % (0.0-1.0); EOSINOPHILS ABSOLUTE AUTO 0.3 K/mm3 (0.0-0.4); EOSINOPHILS PERCENT AUTO 1.6 % (0.0-6.0); HEMATOCRIT 49.3 % (42.0-52.0); HEMOGLOBIN 16.4 gm/dl (14.0-18.0); IMMATURE GRAN ABSOLUTE AUTO 0.18 K/mm3 (0.00-0.05); IMMATURE GRAN PERCENT AUTO 1.1 % (0.0-0.4); LYMPHOCYTES ABSOLUTE AUTO 3.2 K/mm3 (1.0-4.8); LYMPHOCYTES PERCENT AUTO 19.4 % (24.0-44.0); MEAN CORPUSCULAR HEMOGLOBIN 27.7 pg (28.0-32.0); MEAN CORPUSCULAR HGB CONC 33.3 g/dl (32.0-36.0); MEAN CORPUSCULAR VOLUME 83.4 fl (83.0-99.0); MEAN PLATELET VOLUME 8.5 fl (9.4-12.4); MONOCYTES PERCENT AUTO 5.9 % (0.0-8.0); NEUTROPHILS ABSOLUTE AUTO 11.7 K/mm3 (1.8-7.7); NEUTROPHILS PERCENT AUTO 71.7 % (41.0-71.0); PLATELET COUNT,PLT 375 K/mm3 (150-400); RED BLOOD CELL COUNT 5.91 M/mm3 (4.52-5.90); WHITE BLOOD CELL COUNT,WBC 16.32 K/mm3 (3.9-11.3)
[2024-08-30 20:10] LABS: APPEARANCE,URINE CLEAR (Clear); BILIRUBIN,URINE NEGATIVE (Negative); COLOR,URINE YELLOW (Yellow); GLUCOSE,URINE NEGATIVE (Negative); KETONES,URINE NEGATIVE (Negative); LEUKOCYTE ESTERASE,URINE NEGATIVE (Negative); NITRITE,URINE NEGATIVE (Negative); OCCULT BLOOD,URINE NEGATIVE (Negative); PH,URINE 6.5 (5.0-8.0); PROTEIN,URINE NEGATIVE (Negative); UROBILINOGEN,URINE 0.2 (0.2-1.0)
[2024-08-30 20:35] LABS: A/G RATIO 0.8 (1-2); ALBUMIN 3.4 g/dl (3.4-5.0); BILIRUBIN TOTAL 0.5 mg/dL (0.2-1.0); CALCIUM 9.5 mg/dL (8.5-10.1); EST CRCL DRUG DOSING (CG) 98.8 mL/min; PROTEIN TOTAL,TP 7.8 g/dl (6.4-8.2)
[2024-08-30] MEDS ORDERED: Sodium Chloride 0.9% 10 ML Syringe FLUSH PRN (20:44)
[2024-08-30] MEDS: Iopamidol 755 Mg/ML 100 ML Bottle IVPUSH ONE (21:01)
[2024-08-30] MEDS: Sodium Chloride 0.9% 10 ML Syringe FLUSH PRN (21:01)
[2024-08-30] MEDS: cefOXitin 2 GM in Sodium Chloride 0.9% 50 ML IV ONE (23:01)
[2024-08-30] MEDS: Sodium Chloride 0.9% 1,000 ML IV ONE (23:02)
== END 2024-08-31 01:00 ==
LOC: JD.ED 18:53
DX: K81.9 Cholecystitis, unspecified (principal); I10 Essential (primary) hypertension; F17.200 Nicotine dependence, unspecified, uncomplicated; E66.9 Obesity, unspecified; Z68.43 Body mass index [BMI] 50.0-59.9, adult; Z88.8 Allergy status to other drugs, medicaments and biological substances; Z91.030 Bee allergy status; Z79.84 Long term (current) use of oral hypoglycemic drugs; Z79.899 Other long term (current) drug therapy
CPT/HCPCS: 36415; 74177; 80053; 81003; 83690; 85025; 96361; 96365; 99285; J0694; J7030; Q9967

== ENCOUNTER 2024-10-05 09:25 | Emergency (ER) | payer MEDICARE ==
[2024-10-05] MEDS: Ketorolac 60 MG/2 ML SDV IM ONE (10:01)
[2024-10-05] MEDS: cefTRIAXone 1 GM, Lidocaine 1% 2.1 ML IM ONE (10:01)
== END 2024-10-05 10:15 | disposition home or self-care (01) ==
LOC: JD.ED 09:25
DX: K05.6 Periodontal disease, unspecified (principal); K05.10 Chronic gingivitis, plaque induced; K08.89 Other specified disorders of teeth and supporting structures; I10 Essential (primary) hypertension; F17.200 Nicotine dependence, unspecified, uncomplicated; Z90.49 Acquired absence of other specified parts of digestive tract; Z88.8 Allergy status to other drugs, medicaments and biological substances; Z91.030 Bee allergy status; Z79.84 Long term (current) use of oral hypoglycemic drugs; Z79.899 Other long term (current) drug therapy
CPT/HCPCS: 96372; 99283; J0696; J1885; J2003